=== PATIENT | female | born 1985 | race African-American/Black ===

== ENCOUNTER 2018-10-20 18:07 | Emergency (ER) | payer OTHER ==
[~2018-10-20] VITALS: Ht 180.3 cm; Wt 99.8 kg
[2018-10-20 18:52] LABS: URINE BILIRUBIN NEGATIVE (Negative); URINE BLOOD 1+ (Negative); URINE CLARITY CLEAR; URINE COLOR YELLOW; URINE GLUCOSE-RANDOM* NEGATIVE (Negative); URINE KETONES NEGATIVE (Negative); URINE LEUKOCYTES-REFLEX NEGATIVE (Negative); URINE NITRITE-REFLEX NEGATIVE (Negative); URINE PROTEIN (DIPSTICK) NEGATIVE (Negative); URINE UROBILINOGEN 0.2 E.U./dl (0.2-1.0)
[2018-10-20 19:09] LABS: BACTERIA-REFLEX None Seen /HPF (None Seen); CRYSTALS None Seen /LPF (None Seen); MUCUS >6 Heavy strn/LPF (None Seen); SQUAMOUS 4-10 Moderate /LPF (0-3); URINE RBC 3-10 Few /HPF (0-2); URINE WBC-REFLEX 0-5 Rare /HPF (0-5)
[2018-10-20 19:15] LABS: CASTS None Seen /LPF (None Seen)
[2018-10-20] MEDS ORDERED: JANUMET 50-1,01 EACH PO (19:27)
[2018-10-20] MEDS ORDERED: IBUPROFEN 800800 M1 PO (19:28)
[2018-10-20 19:29] LABS: POC CA IONIZED 5.1 mg/dL (4.5-5.3); POC CREATININE 0.8 mg/dL (0.6-1.3); POC HEMOGLOBIN 11.6 g/dL (12.0-15.0); POC POTASSIUM 3.8 mmol/L (3.5-5.1)
[2018-10-20 19:34] LABS: ABSOLUTE NEUTROPHILS 9.7 thou/uL (1.4-8.2); BASOPHILS 0.3 % (0.0-2.0); EOSINOPHILS 0.3 % (0.0-3.0); HEMATOCRIT 32.4 % (37.0-47.0); HEMOGLOBIN 10.8 gm/dL (12.0-15.0); LYMPHOCYTES 12.1 % (24.0-44.0); MCH 26.3 pg (26.0-34.0); MCHC 33.2 g/dL (28.0-37.0); MCV 79.3 fL (80.0-100.0); MONOCYTES 3.4 % (1.0-8.0); PLATELET COUNT 255 thou/uL (150-400); POLYS 83.9 % (36.0-66.0); RBC 4.08 mil/uL (4.20-5.00); RDW 13.3 % (10.5-14.5); WBC 11.5 thou/uL (4.0-11.0)
[2018-10-20 19:40] LABS: ANION GAP 8 mmol/L (7-16); BUN 14 mg/dL (7-18); CALCIUM 9.4 mg/dL (8.5-10.1); CHLORIDE 102 mmol/L (98-107); CO2 26 mmol/L (21-32); CREATININE 0.9 mg/dL (0.6-1.0); GLUCOSE 148 mg/dL (74-106); POTASSIUM 3.7 mmol/L (3.5-5.1); SODIUM 136 mmol/L (136-145)
[2018-10-20 19:49] LABS: TROPONIN-I <0.06 ng/mL (<0.06)
[2018-10-20 20:27] VITALS: BP 130/82
--- NOTE | 2018-10-21 08:20 | EKG ---
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: Adan : 1985 Requested By: Nikolai Fry Order Number: [id number] MD: Trenton Rivas Measurements Intervals [place] Rate: 85 P: 69 MA: 155 QRS: 20 QRSD: 94 T: 12 QT: 345 QTc: 411 Interpretive Statements Sinus rhythm RSR' in V1 or V2, probably normal variant No previous ECG available for comparison Electronically Signed On 10-21-2018 8:20:05 SOILS ANALYST by Trenton Rivas [email or web address] <ELECTRONICALLY SIGNED> By: Trenton Rivas MD, [facility] 10/21/18819 09 09 Trenton Rivas MD, FACC /EPI
== END 2018-10-20 20:27 | disposition home or self-care (01) ==
LOC: ER 18:07
PROVIDERS: Emergency Medicine
DX: R42 Dizziness and giddiness (principal); E11.9 Type 2 diabetes mellitus without complications

== ENCOUNTER 2018-12-10 14:35 | Emergency (ER) | payer OTHER ==
[~2018-12-10] VITALS: Ht 180.3 cm; Wt 106.6 kg
[~2018-12-10 14:35] MED LIST: IBUPROFEN 800800 M1 PO; JANUMET 50-1,01 EACH PO
[2018-12-10] MEDS ORDERED: EXCEDRIN CAPLE1 EACH PO (15:33)
[2018-12-10 16:00] LABS: ABSOLUTE NEUTROPHILS 7.3 thou/uL (1.4-8.2); BASOPHILS 0.2 % (0.0-2.0); EOSINOPHILS 0.4 % (0.0-3.0); HEMATOCRIT 33.3 % (37.0-47.0); HEMOGLOBIN 10.8 gm/dL (12.0-15.0); MCH 26.2 pg (26.0-34.0); MCHC 32.5 g/dL (28.0-37.0); MCV 80.6 fL (80.0-100.0); MONOCYTES 4.2 % (1.0-8.0); PLATELET COUNT 245 thou/uL (150-400); POLYS 80.2 % (36.0-66.0); RBC 4.13 mil/uL (4.20-5.00); RDW 13.9 % (10.5-14.5); WBC 9.1 thou/uL (4.0-11.0)
[2018-12-10 16:11] LABS: ANION GAP 11 mmol/L (7-16); BUN 10 mg/dL (7-18); CALCIUM 9.2 mg/dL (8.5-10.1); CHLORIDE 102 mmol/L (98-107); CO2 25 mmol/L (21-32); GLUCOSE 218 mg/dL (74-106); POTASSIUM 3.5 mmol/L (3.5-5.1); SODIUM 138 mmol/L (136-145)
[2018-12-10 16:21] LABS: ALBUMIN 3.4 g/dL (3.4-5.0); SGOT 12 U/L (15-37); SGPT 19 U/L (30-65); TOTAL BILIRUBIN 0.3 mg/dL (<0.1-1.0); TOTAL PROTEIN 9.5 g/dL (6.4-8.2); TROPONIN-I <0.06 ng/mL (<0.06)
[2018-12-10 16:59] LABS: URINE BILIRUBIN NEGATIVE (Negative); URINE BLOOD 1+ (Negative); URINE CLARITY CLEAR; URINE COLOR YELLOW; URINE GLUCOSE-RANDOM* NEGATIVE (Negative); URINE KETONES NEGATIVE (Negative); URINE LEUKOCYTES-REFLEX NEGATIVE (Negative); URINE NITRITE-REFLEX NEGATIVE (Negative); URINE PROTEIN (DIPSTICK) NEGATIVE (Negative); URINE SPECIFIC GRAVITY 1.025 (1.005-1.035)
[2018-12-10 17:17] LABS: BACTERIA-REFLEX 1-9 Few /HPF (None Seen); CASTS None Seen /LPF (None Seen); CRYSTALS None Seen /LPF (None Seen); SQUAMOUS 0-3 Few /LPF (0-3); URINE RBC 3-10 Few /HPF (0-2); URINE WBC-REFLEX 0-5 Rare /HPF (0-5)
[2018-12-10 18:40] VITALS: BP 121/70
--- NOTE | 2018-12-11 08:22 | EKG ---
[address] [address] [address] [facility] [place] [address] ELECTROCARDIOGRAM REPORT Name: BRENDAN ROMANO Room #: [facility]#: [id number] ������������������ Admission: 12/10/18 ������������������ Attend Phys: Discharge: 12/10/18 ������������������ Date of : 85 Report #: [id number] ����������������������������������������������������������������� [id number] THIS REPORT FOR: //name// [facility] ED Test Date: 2018-12-10 Test Time: 14:42:57 Pat Name: BRENDAN ROMANO Department: Room: Gender: F Clerk Manager: : 1985 Requested By: Elisha Rios Order Number: [id number] MD: Beck Hines Measurements Intervals [place] Rate: 88 P: 74 OR: 150 QRS: 18 QRSD: 85 T: -1 QT: 347 QTc: 420 Interpretive Statements Sinus rhythm Probable left atrial enlargement RSR' in V1 or V2, probably normal variant Compared to ECG 10/20/2018 19:10:34 No significant changes Electronically Signed On 12-11-2018 8:22:03 CDT by Beck Hines [email or web address] ��������������������������������������������� <ELECTRONICALLY SIGNED> ���������������������������������������� By: Beck Hines MD ��������������������������������������������� 12/11/18 08 144 41 Beck Hines MD /MARY BETH
== END 2018-12-10 18:44 | disposition home or self-care (01) ==
LOC: ER 14:35
PROVIDERS: Physician Assistant
DX: E86.0 Dehydration (principal); R42 Dizziness and giddiness; E11.9 Type 2 diabetes mellitus without complications

== ENCOUNTER 2019-01-02 09:12 | Emergency (ER) | payer OTHER ==
[~2019-01-02] VITALS: Ht 180.3 cm; Wt 98.9 kg
[~2019-01-02 09:12] MED LIST changes: +EXCEDRIN CAPLE1 EACH PO
[2019-01-02 09:41] LABS: URINE BILIRUBIN NEGATIVE (Negative); URINE BLOOD TRACE (Negative); URINE CLARITY CLEAR; URINE COLOR YELLOW; URINE GLUCOSE-RANDOM* 2+ (Negative); URINE KETONES NEGATIVE (Negative); URINE LEUKOCYTES-REFLEX TRACE (Negative); URINE NITRITE-REFLEX NEGATIVE (Negative); URINE PROTEIN (DIPSTICK) NEGATIVE (Negative)
[2019-01-02 10:12] LABS: ABSOLUTE NEUTROPHILS 7.8 thou/uL (1.4-8.2); BASOPHILS 0.7 % (0.0-2.0); EOSINOPHILS 0.5 % (0.0-3.0); LYMPHOCYTES 15.6 % (24.0-44.0); MCH 26.2 pg (26.0-34.0); MCHC 32.4 g/dL (28.0-37.0); MCV 80.7 fL (80.0-100.0); MONOCYTES 4.2 % (1.0-8.0); PLATELET COUNT 230 thou/uL (150-400); RBC 4.22 mil/uL (4.20-5.00); RDW 13.5 % (10.5-14.5); WBC 9.9 thou/uL (4.0-11.0)
[2019-01-02 10:24] LABS: ANION GAP 9 mmol/L (7-16); BUN 15 mg/dL (7-18); CHLORIDE 99 mmol/L (98-107); CO2 24 mmol/L (21-32); GLUCOSE 348 mg/dL (74-106); SODIUM 132 mmol/L (136-145)
[2019-01-02 10:34] LABS: ALBUMIN 3.2 g/dL (3.4-5.0); MAGNESIUM 1.8 mg/dL (1.8-2.4); SGOT 12 U/L (15-37); SGPT 20 U/L (30-65); TOTAL BILIRUBIN 0.4 mg/dL (<0.1-1.0); TOTAL PROTEIN 9.1 g/dL (6.4-8.2); TROPONIN-I <0.06 ng/mL (<0.06)
[2019-01-02 11:06] VITALS: BP 143/80
--- NOTE | 2019-01-02 16:44 | EKG ---
[address] [address] [facility] [place] [address] ELECTROCARDIOGRAM REPORT Name: BRENDAN ROMANO Room #: [facility]#: [id number] ������������������ Admission: 01/02/19 ������������������ Attend Phys: Discharge: 01/02/19 ������������������ Date of : 85 Report #: [id number] ����������������������������������������������������������������� [id number] THIS REPORT FOR: //name// 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: SHELLIE : 1985 Requested By: Gerard Cristobal Order Number: [id number] MD: Trenton Rivas Measurements Intervals [place] Rate: 81 P: 73 AL: 154 QRS: 23 QRSD: 83 T: 25 QT: 362 QTc: 421 Interpretive Statements Sinus rhythm RSR' in V1 or V2, probably normal variant Compared to ECG 12/10/2018 14:42:57 No significant changes Electronically Signed On 01-02-2019 16:43:59 CDT by Trenton Rivas [email or web address] ��������������������������������������������� <ELECTRONICALLY SIGNED> ���������������������������������������� By: Trenton Rivas MD, [facility] ��������������������������������������������� 01/02/19 1643 7 7 Trenton Rivas MD, [facility] /EPI
== END 2019-01-02 11:14 | disposition home or self-care (01) ==
LOC: ER 09:12
PROVIDERS: Emergency Medicine
DX: E11.9 Type 2 diabetes mellitus without complications (principal); R42 Dizziness and giddiness

== ENCOUNTER 2019-04-01 23:39 | Inpatient (IN) | payer BC, OTHER ==
[~2019-04-01] VITALS: Ht 180.3 cm; Wt 104.3 kg
--- NOTE | ~2019-04-01 | O ---
[facility] [place] [address] OPERATIVE REPORT Name: BRENDAN ROMANO Room #: 431-P ADM IN M.R.#: [id number] Admission: 04/02/19 ������������������ Attend Phys: Clyde Cho MD Discharge: ������������������ Date of : 85 Report #: [id number] THIS REPORT FOR: //name// CC: Patrick Cho DATE OF SERVICE: 04/02/2019 PREOPERATIVE DIAGNOSIS: Left thigh hidradenitis suppurativa with abscess. POSTOPERATIVE DIAGNOSIS: Left thigh hidradenitis suppurativa with abscess. OPERATION: Incision and drainage of left thigh abscess. SURGEON: Chepe Glover MD. ANESTHESIA: General. ESTIMATED BLOOD LOSS: Minimal. SPECIMENS: 1. Skin for pathology. 2. Abscess fluid for culture and sensitivity. DESCRIPTION OF PROCEDURE: After informed consent was obtained, the patient was brought to the operating room and placed supine. SCDs were placed and working, preoperative antibiotics were administered, general anesthesia was induced. The abdomen and left thigh were prepped and draped in the usual sterile fashion. I used the cautery to make an ellipse of an incision in the left inner thigh. This measured approximately 5 x 4 cm. I was able to dissect down to healthy fat. The skin was then sent off as a specimen. There were two areas more lateral and superior. These measured approximately 2 x 2 cm each. These were excised as well using the cautery. They were packed with sterile gauze. Sterile dressings were applied. COMPLICATIONS: None. DISPOSITION: The patient was taken to recovery in satisfactory condition. ��������������������������������������������� ���������������������������������������� By: ��������������������������������������������� [id number] Chepe Glover MD /nt
[2019-04-02 00:05] VITALS: BP 121/78
[2019-04-02 02:03] LABS: ABSOLUTE NEUTROPHILS 9.2 thou/uL (1.4-8.2); BASOPHILS 1.1 % (0.0-2.0); EOSINOPHILS 0.3 % (0.0-3.0); HEMOGLOBIN 10.3 gm/dL (12.0-15.0); LYMPHOCYTES 17.5 % (24.0-44.0); MCH 25.6 pg (26.0-34.0); MCHC 32.3 g/dL (28.0-37.0); MCV 79.5 fL (80.0-100.0); MONOCYTES 3.9 % (1.0-8.0); PLATELET COUNT 261 thou/uL (150-400); POLYS 77.2 % (36.0-66.0); RBC 4.02 mil/uL (4.20-5.00); RDW 13.4 % (10.5-14.5)
[2019-04-02 02:10] LABS: CALCIUM 8.7 mg/dL (8.5-10.1); POTASSIUM 3.9 mmol/L (3.5-5.1)
[2019-04-02 02:16] LABS: ALBUMIN 2.8 g/dL (3.4-5.0); TOTAL BILIRUBIN 0.3 mg/dL (<0.1-1.0)
[2019-04-02 02:18] LABS: URINE BILIRUBIN NEGATIVE (Negative); URINE BLOOD TRACE (Negative); URINE CLARITY CLEAR; URINE COLOR YELLOW; URINE GLUCOSE-RANDOM* 3+ (Negative); URINE KETONES NEGATIVE (Negative); URINE LEUKOCYTES-REFLEX TRACE (Negative); URINE NITRITE-REFLEX NEGATIVE (Negative); URINE PROTEIN (DIPSTICK) NEGATIVE (Negative)
--- NOTE | 2019-04-02 02:20 | NUR ---
PATIENT TO CT AT THIS TIME
[2019-04-02 04:31] VITALS: BP 120/69
--- NOTE | 2019-04-02 04:39 | NUR ---
REPORT TO INPATIENT RN, LAUREEN.
--- NOTE | 2019-04-02 04:39 | NUR ---
received report from YUDELKA Castellanos, ED.
[2019-04-02 04:42] VITALS: BP 117/90
[2019-04-02 05:00] VITALS: BP 135/91
--- NOTE | 2019-04-02 07:19 | NUR ---
PT ADMITTED TO THE UNIT, AMBULATED FROM CART TO BED, GAIT STEADY, RIGHT ARMPIT, LEFT GROIN BOTH DRAINING WITH SEROUS DRAINAGE, LEFT ARMPIT LESS DRAINAGE NOTED, PICTURES OBTAINED, Johan KAY, ROUNDED, GIVEN FENTANYL FOR PAIN, GIVEN FALL EDUCATION, SIGNED CONTRACT, GIVEN BED/CALL LIGHT EDUCATION, ON ROOM AIR, PT EDUCATED ABOUT HYGIENE, SAID SHE HAS TWO YEAR OLD CHILD AND THE OTHERS ARE 8, 10 AND 12 YEARS OLD, RESTING GOOD, MONITORED.
--- NOTE | 2019-04-02 07:39 | NUR ---
CONSULT TO DR JIMENEZ WAS SENT OUT THIS MORNING, KEPT NPO FOR I/D OF ABSCESS.
[2019-04-02 08:48] VITALS: BP 126/84
--- NOTE | 2019-04-02 09:08 | NUR ---
Assessed d/t consult for abscess to L groin and R axilla. Hx DM, hidradenitis suppurativa. Per chart review, being kept NPO for possible I&D of abscess. Pt was resting in bed, but willing to speak w/ RD and allow for education. No appetite concerns or recent weight changes per pt, however weight records show a +12# weight gain in 3 months (from 218# per 01/02 to 230# per 04/02). Informed pt of increased protein needs given skin integrity concerns w/ abscess. Recommended protein entree q meal and additional protein source from milk, yogurt, cottage cheese, or plant protein like nut butter. Morning BG high at 318 mg/dl - has SSI. A1c - pending. Remains low nutrition risk.
--- NOTE | 2019-04-02 16:21 | NUR ---
ASSESSMENT-PT LIVES IN AN APT WITH HER MOTHER. SHE HAS HER SISTER IN THE AREA FOR SUPPORT WELL. PT IS INDEPENDENT OF ADLS AND AMBULATION PRIOR TO ADMISSION. PT VOICES NO CONCERNS RELATED TO DC. FOLLOWING TO ASSIST WITH ANY DC NNEDS. 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 PT HAS NOT HAD ANY HH SERVICES AND USES NO DME.
[2019-04-02 20:35] VITALS: BP 152/76
--- NOTE | 2019-04-02 20:45 | NUR ---
ASSUMED CARE OF PT AT 0700. ASSESSMENT CHARTED A&O,X4. C/O LEFT GROIN AND RIGHT AXILLA PAIN, PAIN MEDS GIVEN ORDERED. CULTURE OBTAINED. PLAN FOR I&D THIS EVENING, NPO. ACHS, NO INSULIN GIVEN DUE TO NPO. PT LEFT IN STABLE CONDITION VIA BED AT 15:40 FOR PREOP AND RETURNED AT 19:30. SURGICAL DRESSING IN PLACE LEFT GROIN, NO BLEEDING NOTED. WAITING FOR DR. ODONNELL TO ORDER DRESSING CHANGES. NO OTHER CHANGE IN STATUS.
[2019-04-03 00:05] LABS: GLYCOHEMOGLOBIN (HGB A1C) 12.8 % (4.8-5.6)
--- NOTE | 2019-04-03 05:30 | NUR ---
ASSUMED CARE OF PT @1900 PT A&OX4. SURGICAL DRESSING FROM I&D ON LEFT GROIN INTACT. NO DRAINAGE ON SITE. FLUIDS INFUISING AND ABX GIVEN. POC DONE. CARB CONTROL DIET ORDERED AND STARTED PER DOC. INSULIN GIVEN FOR ELEVATED BSG. FALL PREC IN PLACE AND CALL LIGHT WITHIN REACH WILL CONTINUE TO MONITOR TILL EOS
[2019-04-03 06:37] VITALS: BP 123/77
[2019-04-03 08:11] VITALS: BP 117/81
[2019-04-03 10:36] LABS: HEMATOCRIT 28.6 % (37.0-47.0); HEMOGLOBIN 9.1 gm/dL (12.0-15.0); MCH 25.3 pg (26.0-34.0); MCHC 31.8 g/dL (28.0-37.0); MCV 79.5 fL (80.0-100.0); RBC 3.6 mil/uL (4.20-5.00); RDW 13.5 % (10.5-14.5); WBC 12.6 thou/uL (4.0-11.0)
[2019-04-03 10:45] LABS: CALCIUM 8.5 mg/dL (8.5-10.1); MAGNESIUM 1.9 mg/dL (1.8-2.4); POTASSIUM 3.9 mmol/L (3.5-5.1)
[2019-04-03 16:36] VITALS: BP 114/76
--- NOTE | 2019-04-03 16:57 | NUR ---
WOUND CARE CONSULT; ROUNDING WITH DR RAO AND ENZO BRAID PATTERN SETTER. BILATERAL AXILLARY'S PAINFUL, DRAINING. THE PAT HAS HAD THIS FOR A LONG TIME 5+ YEARS. THE LEFT GROIN WAS SURGICALLY DEBRIDED CREATING 3 WOUNDS. THE WOUNDS ARE PAINFUL, BEFFY RED DRAINING SEROSANGINOUS DRAINAGE. RECOMMENDATIONS; AQUACEL AG TO ALL WOUND BEDS, SECURE WITH ABD'S AND TAPE. DISCUSSED WITH RN
--- NOTE | 2019-04-03 20:03 | NUR ---
Assessment completed.vss.Pt in bed most of the time but able to repositioned self. Dr King here,order noted.Drsg change done to left groin by journeyman pressman.Ivf cont. to infuse as ordered. Family here later this evening and assisted pt with bath.Pain shot given as ordered with relief.Report off to noc rn.
[2019-04-03 20:53] VITALS: BP 111/71
[2019-04-04 04:52] VITALS: BP 89/54
[2019-04-04 05:37] LABS: HEMATOCRIT 26.3 % (37.0-47.0); HEMOGLOBIN 8.3 gm/dL (12.0-15.0); MCH 25.4 pg (26.0-34.0); MCHC 31.7 g/dL (28.0-37.0); MCV 80.1 fL (80.0-100.0); RBC 3.28 mil/uL (4.20-5.00); RDW 13.7 % (10.5-14.5); WBC 10.1 thou/uL (4.0-11.0)
[2019-04-04 05:39] LABS: CREATININE 0.9 mg/dL (0.6-1.0); MAGNESIUM 1.8 mg/dL (1.8-2.4); POTASSIUM 3.8 mmol/L (3.5-5.1)
--- NOTE | 2019-04-04 06:09 | NUR ---
ASSUMED CARE OF PT@1900. PT A&OX4 AND VSS AT THIS SHIFT. WITH C/O LFT GROIN PAIN. PAIN MEDS GIVEN FOR MANAGEMENT. POC DONE AND DRESSING ON LFT GROIN INTACT. WILL CONTINUE TO MONITOR TILL EOS
[2019-04-04 08:11] VITALS: BP 113/75
[2019-04-04] MEDS ORDERED: BACTRIM DS TAB1 EACH PO (13:24)
[2019-04-04] MEDS ORDERED: LANTUS SOL100 UNIT/1 SUBQ (13:28)
[2019-04-04] MEDS ORDERED: 1ST TIER UNILE1 EAC1 SUBQ (13:29)
[2019-04-04] MEDS ORDERED: TEST STRIPS1 EACH SUBQ (13:36)
[2019-04-04 15:01] VITALS: BP 113/75
--- NOTE | 2019-04-04 15:57 | NUR ---
DISCHARGED TO HOME ACCOMPANIED BY SPOUSE. DRESSING CHANGE CARE PROVIDED AND PATIENT VOICED UNDERSTANDING. IV D/C'D. DENIES QUESIONS OR CONCERNS. VERY PLEASANT AND COOPERATIVE. DENIES PAIN.
[2019-04-04] MEDS ORDERED: TRAMADOL 50 MG50 MG PO (16:19)
--- NOTE | 2019-04-06 08:26 | HC ---
[facility] [place] [address] CONSULTATION Name: BRENDAN ROMANO Room #: 431-P [facility] IN ..#: [id number] Admission: 04/02/19 ������������������ Attend Phys: Clyde Cho MD Discharge: 04/04/19 ������������������ Date of : 85 Report #: [id number] THIS REPORT FOR: //name// CC: Patrick Cho DATE OF SERVICE: 04/03/2019 CHIEF COMPLAINT: Hidradenitis suppurativa and abscess to the left thigh. HISTORY OF PRESENT ILLNESS: This is a 33-year-old female patient who presented to the Emergency Department with an abscess on her left upper medial thigh that began several days ago. She has had a long history of hidradenitis suppurativa involving her groin and bilateral axilla. The swelling has increased over the last couple of days with bloody drainage and purulent material and odor. She is admitted to the hospital. She was seen by general surgery and taken to the operating room for surgical debridement of the abscess. She has had some pain, but states she is feeling somewhat better. PAST MEDICAL HISTORY: Significant for type 2 diabetes mellitus, protein calorie malnutrition as well as hidradenitis suppurativa. ALLERGIES: None. MEDICATIONS: Include Janumet and Motrin. SOCIAL HISTORY: Negative for alcohol or tobacco use. FAMILY HISTORY: Positive for heart disease in her father and diabetes in both of her parents. REVIEW OF SYSTEMS: CONSTITUTIONAL: The patient denies fever, chills or weight loss. NEUROLOGICAL: The patient denies focal weakness, numbness or tingling. EYES: The patient denies any visual changes, redness or drainage. ENT: The patient denies earache, nasal drainage or sore throat. CARDIOVASCULAR: The patient denies chest pain, palpitations or diaphoresis. PULMONARY: The patient denies cough or shortness of breath. GASTROINTESTINAL: The patient denies nausea, vomiting, diarrhea. ORTHOPEDIC: The patient complains of some pain and drainage from both axillary regions as well as the left thigh, which she states feels better following surgery. Other systems in a 14-point review of systems are negative. PHYSICAL EXAMINATION: VITAL SIGNS: At this time include temperature 37.0, pulse 78, respiratory rate [facility] [address] [place] [address] CONSULTATION Name: BRENDAN ROMANO Room #: 431-[facility].#: [id number] Admission: 04/02/19 ������������������ Attend Phys: Clyde Cho MD Discharge: 04/04/19 ������������������ Date of : 85 Report #: [id number], blood pressure 114/76. GENERAL: This is a well-developed, well-nourished female patient who appears to be in mild discomfort. HEENT: Head normocephalic. Nose and throat clear. NECK: Supple. LUNGS: Clear. HEART: Regular. ABDOMEN: Soft. Bowel sounds present. EXTREMITIES: Demonstrate some evidence of hidradenitis suppurativa in both axillary regions with some purulent drainage and mild tenderness. No discrete abscess noted. Left anterior thigh demonstrates surgical wounds x 3 to the anterior and medial portion of the thigh. These areas are relatively clean and granulating and do not appear overtly infected at this time. NEUROLOGIC: The patient is alert and oriented and appropriate. LABORATORY DATA: Include a sodium of 136, potassium 3.9, chloride 105, CO2 of 25, BUN 11, creatinine 1.0, glucose is 318. White blood cell count 12.6 with hemoglobin of 9.1. CLINICAL IMPRESSION: 1. Abscess to the left anterior thigh, status post surgical debridement. 2. Hidradenitis suppurativa to the groin bilaterally and bilateral axilla. 3. Type 2 diabetes mellitus with hyperglycemia. RECOMMENDATIONS: At this point in time, the patient will be treated with topical silver alginate to the open areas of the left thigh and both axilla. She is continued on intravenous antibiotic therapy. Cultures are pending. She may require some surgical debridement of the axilla at some point in the future as a preventative measure. I appreciate being asked to see her in consultation. ��������������������������������������������� <ELECTRONICALLY SIGNED> ���������������������������������������� By: Justin Decker MD ��������������������������������������������� 04/06/19 0826 1813 0712 Justin Decker MD /nt
--- NOTE | 2019-04-06 17:06 | PATH ---
[facility] [address] [place] [address] PATHOLOGY RPT PROCEDURE Name: SCARLET ROMANO Room #: 431-P [facility] IN M.R.#: [id number] ������������������ Admission: 04/02/19 ������������������ Date of : 85 Discharge: 04/04/19 Report #: [id number] Path Case #: [id number] [facility] Accession Number: [id number] . 01 Material submitted: . thigh - LEFT THIGH HIDRADENITIS. Modifiers: left . 01 Clinical history: . Left thigh abscess . 02 Diagnosis: Left thigh abscess/hidradenitis, excision: - Deep subcutaneous tissue showing marked acute and chronic inflammation associated with a mature keratinous cyst. - Negative for malignancy. (IUV:[employer]; 04/06/2019) MBR/04/06/2019 . 02 Electronically signed: . Kesha Panchal MD, Pathologist NPI- [id number] . 01 Gross description: . The specimen is received in formalin, labeled "Scarlet Romano, left thigh hidradenitis". Received is no ellipse of granado-brown skin with attached underlying soft tissue measuring 5.0 x 1.7 x 2.7 cm in greatest dimensions. Sectioning reveals a linear sinus tract measuring 2.4 cm in length by up to 0.6 cm in width. Remainder of the specimen displays white-lundy to yellow-lundy cut surfaces. The specimen is submitted representatively in cassettes A1 and A2. (CAA; 04/03/2019) QAC/QAC . 02 Pathologist provided ICD-10: L08.9, L72.9 . 02 CPT . 679713 Specimen Comment: A courtesy copy of this report has been sent to Specimen Comment: [phone], , . Specimen Comment: Report sent to ,DR YEPEZ / DR WHYTE Performed at: [address] [id number] MD Jhony Barron MD Phone: [phone] Performed at: [address] [place] [address] PATHOLOGY RPT PROCEDURE Name: SCARLET ROMANO Room #: 431-P [facility] IN M.R.#: [id number] ������������������ Admission: 04/02/19 ������������������ Date of : 85 Discharge: 04/04/19 Report #: [id number] Path Case #: [id number] [address], [place] [id number] MD Kesha Panchal MD Phone: [phone]
== END 2019-04-04 16:22 | disposition home or self-care (01) | DRG 603 ==
LOC: ER 23:39 → 4E 04-02 03:54 → EROBS 04-02 03:54 → 4E 04-02 04:42
PROVIDERS: Emergency Medicine; Nurse Practitioner Acute Care; ADMIT Internal Medicine
DX: L02.416 Cutaneous abscess of left lower limb (principal); L03.315 Cellulitis of perineum; E46 Unspecified protein-calorie malnutrition; L02.411 Cutaneous abscess of right axilla; L03.111 Cellulitis of right axilla; L02.214 Cutaneous abscess of groin; L03.314 Cellulitis of groin; F80.82 Social pragmatic communication disorder; E11.65 Type 2 diabetes mellitus with hyperglycemia; L73.2 Hidradenitis suppurativa; D64.9 Anemia, unspecified; E88.09 Other disorders of plasma-protein metabolism, not elsewhere classified; E66.01 Morbid (severe) obesity due to excess calories; Z79.899 Other long term (current) drug therapy; Z82.49 Family history of ischemic heart disease and other diseases of the circulatory system; Z83.3 Family history of diabetes mellitus; Z68.32 Body mass index [BMI] 32.0-32.9, adult
CPT/HCPCS: 10084; 50010; 50101; 50386; 57091; 62110; 62900; 70005

== ENCOUNTER 2019-05-03 09:25 | Inpatient (IN) | payer BC, OTHER ==
[~2019-05-03] VITALS: Ht 180.3 cm; Wt 109.3 kg
[2019-05-03 09:25] VITALS: BP 121/92
[~2019-05-03 09:25] MED LIST changes: +1ST TIER UNILE1 EAC1 SUBQ; +BACTRIM DS TAB1 EACH PO; +LANTUS SOL100 UNIT/1 SUBQ; +TEST STRIPS1 EACH SUBQ; +TRAMADOL 50 MG50 MG PO
[2019-05-03] MEDS ORDERED: IBUPROFEN 800800 M1 PO (09:35)
[2019-05-03 11:56] LABS: ABSOLUTE NEUTROPHILS 7.7 thou/uL (1.4-8.2); BASOPHILS 0.6 % (0.0-2.0); EOSINOPHILS 0.5 % (0.0-3.0); HEMATOCRIT 27.8 % (37.0-47.0); HEMOGLOBIN 9.2 gm/dL (12.0-15.0); LYMPHOCYTES 15.1 % (24.0-44.0); MCH 25.9 pg (26.0-34.0); MCHC 33.2 g/dL (28.0-37.0); MONOCYTES 4.1 % (1.0-8.0); PLATELET COUNT 253 thou/uL (150-400); POLYS 79.7 % (36.0-66.0); RBC 3.56 mil/uL (4.20-5.00); RDW 13.6 % (10.5-14.5); WBC 9.7 thou/uL (4.0-11.0)
[2019-05-03 12:26] LABS: CALCIUM 8.9 mg/dL (8.5-10.1); CREATININE 0.9 mg/dL (0.6-1.0); POTASSIUM 4.2 mmol/L (3.5-5.1)
[2019-05-03 12:32] LABS: ALBUMIN 2.7 g/dL (3.4-5.0); TOTAL BILIRUBIN 0.1 mg/dL (<0.1-1.0); TOTAL PROTEIN 8.6 g/dL (6.4-8.2)
[2019-05-03 13:48] VITALS: BP 123/79; BP 128/88
--- NOTE | 2019-05-03 14:27 | NUR ---
CALLED [id number] X 2 AND NO ANSWER
--- NOTE | 2019-05-03 14:29 | NUR ---
PER MENDY, NURSE IS IN A ROOM AND WILL CALL BACK
[2019-05-03 15:20] VITALS: BP 126/83
[2019-05-03 20:04] VITALS: BP 124/84
--- NOTE | 2019-05-03 20:55 | NUR ---
Received pt from the ER, IV fluids started, admission completed. VS stable, POC followed, consents singed for tomorrow, NPO midnight onwards pt informed. Pt is up at [facility]. informed the pm nurse.
[2019-05-04 00:26] VITALS: BP 113/75
--- NOTE | 2019-05-04 02:05 | NUR ---
ASSUMED CARE OF PT @1900. PT A&OX4. C/O 06/18 PAIN AND MEDICATED APPROP. PT ADLIB IN THE ROOM WITH STAEDY GAIT. PT HAS A ABSESSES IN HER R AMPIT AND LEFT GROIN AREA. PT IS NPO IN PREPARATION FOR AN I&D IN THE MORNING. CALL MENDOZA WITHIN REACH
[2019-05-04 03:39] VITALS: BP 109/73
[2019-05-04 08:00] VITALS: BP 110/69
--- NOTE | 2019-05-04 11:37 | NUR ---
ASSUMED CARE AT 0700, SHIFT ASSESSMENT DONE, NPO SINCE LAST NIGHT FOR I&D TODAY. ACHS, BLOOD SUGAR WAS 185, 5 UNITS OF INSULIN GIVEN PER SURGERY. IV ANTIBIOTICS AND FLUIDS RUNNING, UP AD ZUHAIR, ROOM AIR. WILL CONTINUE TO ASSESS AND ASSIST WITH ADLs NEEDED.
--- NOTE | 2019-05-04 16:03 | NUR ---
PT ADMITTED RELATED TO ABSESSES DM. CM REVIEWED CHART AND SPOKE WITH CARE TEAM. CM MET WITH PT AT BEDSIDE THIS DAY. PT IS A&O X4. CM ROLE INTRODUCED. PT INDICATED SHE LIVES IN A HOSUE WITH HER SPOUSE AND KIDS WITH NO STEPS TO ENTER. PT INDICATED SHE HAD BEEN INDEPDENENT WITH GAIT AND ADLS GANG BOSS. PT INDICATED NO DME OR HH HX. PT INDICATED HER PCP IS DR. CHERRIE DIAZ AT [facility]. PT INDICATED SHE PLANS TO RETURN HOME ONCE MEDICALLY STABLE. CM TO FOLLOW INDICATED WITH DC PLANNING.
[2019-05-04 18:00] VITALS: BP 122/81
[2019-05-04 20:05] VITALS: BP 131/88
--- NOTE | 2019-05-05 05:30 | NUR ---
Pt. rested quietly at intervals during the night when checked on during frequent rounds. She c/o pain to her upper extremities and left groin. Medicated for pain (see emar) with partial relief verbalized. Dressings to bilateral axillary and left groin are intact. Assisted up to the bathroom and she did void.
[2019-05-05 07:31] VITALS: BP 122/76
[2019-05-05 09:10] LABS: GLYCOHEMOGLOBIN (HGB A1C) 11.1 % (4.8-5.6)
--- NOTE | 2019-05-05 10:44 | NUR ---
ORDERS RECEIVED FOR PT EVAL AND TREAT. Pt LIVES WITH AND 4 KIDS IN HOME WITH NO STAIRS. AMBULATORY WITHOUT GAIT AIDS AND INDEP WITH ADLs. 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 Pt REPORTED VERY LITTLE PAIN AND STATED THAT SHE HAS NOT HAD ANY STRENGTH OR BALANCE ISSUES SINCE ARRIVING AT HOSPITAL. Pt HAS BEEN UP AD ZUHAIR AND MANAGING IV POLE W/O DIFFICULTY PER Pt AND RN. Pt CONFIRMED THAT SHE DOES NOT FEEL THAT SHE NEEDS PT SERVICES AT THIS TIME. Pt MOBILIZING AT BASELINE LEVEL OF FUNCTIONAL MOBILITY. NO ACUTE PT NEEDS. ACUTE PT TO SIGN OFF. ANTICIPATE Pt WILL BE SAFE TO D/C HOME W/O THERAPY NEEDS. IF Pt HAS SIGNIFICANT CHANGE IN STRENGTH, BALANCE, ENDURANCE, OR FUNCTIONAL MOBILITY, PLEASE CONSIDER RE-CONSULTING PHYSICAL THERAPY.
--- NOTE | 2019-05-05 11:14 | NUR ---
Assess due to dx hidradinitis suppurativa affecting axillary and left groin area. Visit with pt this am, not very engaged in conversation mostly yes/no or nodding of head responses. Appetite good. BG in hospital controlled, A1C 11.1 very high but slightly improved from last A1C >12 in March. Receiving coverage with glargine at HS, and ss insulin. Wt up 11 lb, BMI obese 33.69. Received diet education during March admit and voices no further questions. Reinforcement of high protein food selections which pt is eating. Low nutrition risk
[2019-05-05 13:32] VITALS: BP 142/87
--- NOTE | 2019-05-05 20:06 | NUR ---
Assumed pt care this am. pt is up at [facility] with a steady gait. pt complained of pain and this was managed with medication. Seen by wound care, pt requested to have this done later on in the evening since her family was visiting and wanted to do this before bed time, endorsed to the night nurse all supplies given. Informed night nurse on the packing of the wound. Pt is requesting pain medication be given before the change is done, night nurse informed. VS stable, Nausea was noted , managed with medications. POC followed.
[2019-05-05 20:09] VITALS: BP 145/86
[2019-05-06 04:38] VITALS: BP 112/71
[2019-05-06 07:27] VITALS: BP 125/86
--- NOTE | 2019-05-06 08:11 | NUR ---
PROGRESS PT A/O X4, UP AD ZUHAIR. VSS IVF'S AND ANTIBIOTICS CONTINUE. DRESSINGS CHANGED 7 WOUNDS UNDER RIGHT ARM. I WAS ABLE TO PACK 6 WOUNDS LARGE AMOUNTS OF BLOODY DRAINAGE. PT ALMOST UNABLE TO TOLERATE PAIN WITH DRESSING CHANGE EVEN WITH THE MORPHINE CREAM IV DILAUDID AND OXYCODONE. WOUNDS IN LEFT GROIN ALSO CHANGED AND PACKED ONE WITH PACKING ONE WITH AQUACEL. LARGE AMOUNTS OF DRAINAGE NOTED, AN AREA ON LEFT BUTTOCK ALSO COVERED WITH AQUACEL. PT UP AD ZUHAIR, VOIDING QS CONTINUE WOUND CARE AND PAIN MANAGEMENT.
--- NOTE | 2019-05-06 13:39 | NUR ---
Assumed pt care this am, pain and discomfort waas verbalized on the incision site , aggrivated from the wound care and packing from last night. Informed Dr. Cervantes, awaiting medication to be given prior to wound care tonight. VS stable, POC followed.
[2019-05-06 14:06] VITALS: BP 130/78
--- NOTE | 2019-05-06 15:02 | HC ---
[facility] [place] [address] CONSULTATION Name: BRENDAN ROMANO Room #: 457-P ADM IN M.R.#: [id number] Admission: 05/03/19 Attend Phys: Deo Fontenot MD Discharge: Date of : 85 Report #: [id number] THIS REPORT FOR: //name// CC: FAM physician/PCP Deo Fontenot DATE OF SERVICE: 05/05/2019 WOUND CARE CONSULTATION PERSONAL PHYSICIAN: Deo Fontenot MD. CHIEF COMPLAINT: Right axillary left groin wound secondary to hidradenitis suppurativa. HISTORY OF PRESENT ILLNESS: This is a 34-year-old black female who was admitted through the Emergency Department for evaluation of pain and purulent drainage coming from the right axillary region and left groin. The patient has a history of hidradenitis suppurativa, which actually in these areas has been drained in the past surgically. The patient at this time was admitted for IV antibiotics and recurrent surgical consultation. The patient states that she has no fevers or chills. The patient states that since her last surgery she did note some improvement in her wounds; however, once again they started getting worse again just in the past couple of days. The patient states she has some chills and occasional night sweats; however, denies actual fever. We were asked to assist in the care of the wounds, which have now been status post operative drainage by Dr. Cervantes. PAST MEDICAL HISTORY: Significant for diabetes mellitus, hidradenitis suppurativa. CURRENT MEDICATIONS: Multiple including insulin. I reviewed the patient's list. DRUG ALLERGIES: None. SOCIAL HISTORY: The patient does not smoke or drink alcohol. FAMILY HISTORY: Not pertinent to current medical condition. REVIEW OF SYSTEMS: CONSTITUTIONAL: The patient had chills, night sweats, but no actual fever over the past 2 days prior to hospitalization. NEUROLOGIC: The patient denies numbness, tingling or weakness in arms or legs. EYES: No complaints. ENT: No complaints. [facility] [address] [place] [address] CONSULTATION Name: BRENDAN ROMANO Room #: 457-[facility].#: [id number] Admission: 05/03/19 Attend Phys: Deo Fontenot MD Discharge: Date of : 85 Report #: [id number] CARDIAC: The patient denies chest pain, palpitations, peripheral edema. RESPIRATORY: The patient denies shortness of breath, cough or wheezes. GASTROINTESTINAL: The patient denies nausea, vomiting or abdominal pain. GENITOURINARY: The patient denies urgency or frequency. MUSCULOSKELETAL: No complaints. SKIN: The patient has hidradenitis suppurativa on the right axillary region, left groin, which is status post surgical debridement. PHYSICAL EXAMINATION: VITAL SIGNS: Temperature 37.5, pulse 96, respiratory rate 18, BP 145/86. GENERAL: This is an alert and oriented x 3, pleasant black female who is in no obvious distress. HEENT: Normocephalic, atraumatic. Mucous membranes are moist. Pupils are round. Sclerae white. NECK: Supple, nontender. LUNGS: Clear. HEART: Regular. ABDOMEN: Soft, nontender. EXTREMITIES: The patient moves all extremities without difficulty. Distal neurovascularly intact. Evaluation of right axillary region reveals approximately 7 different surgical wounds with packing in the wounds themselves. There is no evidence of any acute purulence. The entire axillary region is tender to palpation, but no actual fluctuance. There is no increased erythema or warmth. Evaluation of the left groin reveals multiple surgical wounds which were packed with iodoform packing, tender to palpation, but no signs of increased actual erythema or warmth. There is minimal serosanguineous drainage noted, but no odor. There is no fluctuance. NEUROLOGIC: Cranial nerves 2-12 grossly intact. Motor and sensory grossly intact. LABORATORY DATA: White count 9.7, hemoglobin 9.2, BUN 11, creatinine 0.9, glucose was 235. Albumin 2.7. IMPRESSION: 1. Acute exacerbation of hidradenitis suppurativa in the right axillary and left groin wound with surrounding cellulitis, now status post incision and drainage. 2. Diabetes mellitus. 3. Generalized debility. 4. Protein-calorie malnutrition. There is moderate albumin 2.7. PLAN: At this time, we will start packing the wound with morphine, Silvadene cream with iodoform packing. We will cover these with an ABD. Continue IV antibiotics per medical team. We will make sure to maximize the patient's oral protein supplementation for healing. We will continue all other current [address] [address] CONSULTATION Name: ROSALINAADRIMOOKIE Piedad Room #: 457-P [facility] IN .R.#: [id number] Admission: 05/03/19 Attend Phys: Deo Fontenot MD Discharge: Date of : 85 Report #: [id number] medications and continue to follow the patient. I appreciate the ability to consult. <ELECTRONICALLY SIGNED> By: Lebron Wooten MD 05/06/19 1502 0831 1333 Lebron Wooten MD /nt
--- NOTE | 2019-05-06 15:32 | NUR ---
CARE TEAM INDICATED THAT PT MIGHT NEED PROLONGED ABX TREATMENT. CM MET WITH PT AND SHE INDICATED NO PREFERENCE FOR INFUSION COMPANY OR PROVIDER. SHE WAS AGREEABLE WITH REFERRAL BEING SENT TO [facility] FOR HOME INF[facility]ION AND [facility] FOR WOUND CARE [place] [place]. [facility] INDICATED THAT PT IS COVERED AT 100% FOR DRUG AND SUPPLIES. AWAITING RESPONSE FROM [facility]. CARE TEAM ALSO INDICATED THEY WERE GOING TO CONSULT ID. CM TO FOLLOW INDICATED WITH DC PLANNING.
[2019-05-06 19:43] VITALS: BP 137/79
[2019-05-07 06:07] LABS: HEMATOCRIT 25.3 % (37.0-47.0); HEMOGLOBIN 8.3 gm/dL (12.0-15.0); MCH 25.9 pg (26.0-34.0); MCHC 32.9 g/dL (28.0-37.0); MCV 78.7 fL (80.0-100.0); RBC 3.21 mil/uL (4.20-5.00); RDW 13.7 % (10.5-14.5); WBC 7.2 thou/uL (4.0-11.0)
[2019-05-07 06:16] LABS: CALCIUM 8.5 mg/dL (8.5-10.1); POTASSIUM 3.7 mmol/L (3.5-5.1)
[2019-05-07 08:07] VITALS: BP 126/76
--- NOTE | 2019-05-07 08:13 | NUR ---
progress pt up ad ludwig a/o x4 , lungs clear abdomen soft reports flatus and had a bm yesterday. reports pain at a level of 6to 9 taking oxycodone but it gives her a headache pc to Shira JJ and order to dc oxycodone and order tramadol obtained. pt refused dressing change said it is too painful and she can only handle it every other day educated on why it is being change r/v understanding. vss continue poc.
[2019-05-07 16:04] VITALS: BP 131/85
--- NOTE | 2019-05-07 19:31 | NUR ---
Assumed care of pt at 0700. Pt a&ox4. IVF and antibiotics infusing. Dressing changed. Up ad lduwig. Pain controlled with prn medications. Call light within reach. Will continue to monitor.
[2019-05-07 20:15] VITALS: BP 140/94
--- NOTE | 2019-05-08 02:22 | NUR ---
ASSUMED CARE AROUND 1900. AXOX4. R AXILLA AND L GROIN DRESSING CDI. NO S/S ACUTE DISTRESS NOTED REPORTED AT THIS TIME. WILL CONT TO MONITOR FOR ANY CHANGES IN CONDITION.
[2019-05-08 05:21] VITALS: BP 129/86
[2019-05-08 07:58] VITALS: BP 140/93
[2019-05-08 13:18] VITALS: BP 140/93
--- NOTE | 2019-05-08 14:47 | NUR ---
CONSULTED BY TIAGO DELUCA TO PLACE A PICC LINE FOR A PATIENT DISCHARGING TODAY WITH HOME IV ANTIBIOTICS. ORDER AND CONSENT NOTED. THE PROCEDURE WELL BENIFITS WELL RISKS FOR DVT AND INFECTION DISCUSSED WITH THE PATIENT AND SHE VERBALIZED UNDERSTANDING. THE RIGHT ARM HAS A DRESSING DUE TO CELLULITIS AND AVOIDED. THE LEFT ARM HAS OLD SCARS FROM A PRIOR CELLULITIS WHICH IS NOT ACUTE. THE LEFT UPPER ARM BASILIC WAS WIDLEY PATENT AND DEEP. A #4F SINGLE LUMEN POWER PICC WAS PLACED PER HOSPITAL POLICY AFTER A BEDSIDE TIMEOUT WAS COMPLETED WITH THE PATIENTS NURSE. PICC WAS TRIMMED TO 50CM AND ADVANCED WITHOUT DIFFICULTY.. A STAT CHEST XRAY WAS ORDERED FOR CONFIRMATION
[2019-05-08] MEDS ORDERED: TRAMADOL 50 MG50 MG PO (15:09)
[2019-05-08] MEDS ORDERED: ERTAPENEM1 GM IV (15:11)
[2019-05-08 15:22] VITALS: BP 133/89
--- NOTE | 2019-05-08 15:29 | HC ---
[facility] [place] [address] CONSULTATION Name: BRENDAN ROMANO Room #: 457-P ADM IN M.R.#: [id number] Admission: 05/03/19 Attend Phys: Deo Fontenot MD Discharge: Date of : 85 Report #: [id number] THIS REPORT FOR: //name// CC: [facility] physician/PCP Deo Fontenot DATE OF SERVICE: 05/07/2019 INFECTIOUS DISEASE CONSULTATION REASON FOR CONSULTATION: I was asked to evaluate concerning hidradenitis suppurativa. HISTORY OF PRESENT ILLNESS: This is a 34-year-old with underlying history of hidradenitis suppurativa, longstanding. She presents on 05/03/2019 with worsening symptoms mostly in her left groin and right axillary region. She does have obesity. She has been dealing with this for several years. No history of tobacco use. She does have poorly controlled diabetes. She was recently admitted on 04/04/2019 for similar symptoms. She has undergone debridement. Continues to have purulent drainage. Cultures so far no growth. ALLERGIES: None known. MEDICATIONS: As noted on her MAR including Zosyn and vancomycin. Previously was on Bactrim. PAST MEDICAL HISTORY: Diabetes, hidradenitis. FAMILY HISTORY: Heart disease. SOCIAL HISTORY: Nonsmoker, no significant alcohol intake. No further social history of note. REVIEW OF SYSTEMS: Ten-point review was negative other than what has been described above. PHYSICAL EXAMINATION: VITAL SIGNS: Afebrile and hemodynamically stable. GENERAL: She is alert and cooperative, obese. SKIN: Extensive bilateral axillary hidradenitis lesions with purulent drainage and tenderness. Left groin wounds packed. Lesions here are much less inflamed. EYES: Without scleral icterus. MOUTH: Without mucositis. NECK: No palpable adenopathy. LUNGS: Clear. HEART: Regular. [facility] [address] [place] [address] CONSULTATION Name: BRENDAN ROMANO Room #: 457-P [facility] [place].#: [id number] Admission: 05/03/19 Attend Phys: Deo Fontenot MD Discharge: Date of : 85 Report #: [id number] ABDOMEN: Soft and nontender. EXTREMITIES: No significant peripheral edema. NEUROLOGIC: Nonfocal. No cranial nerve abnormalities. Strength in the upper and lower extremities is normal. Sensation normal. BACK: Nontender with no CVA tenderness identified. PSYCHIATRIC: Mood was normal. LABORATORY STUDIES: Reviewed. Cultures are no growth. This was on antibiotic therapy. IMPRESSION: Recurrent hidradenitis suppurativa. She will need continued wound care and incision and drainage of these areas. She may well require further extensive excisional debridement. For now, we will keep her on IV antibiotic therapy and see if we can get the inflammatory process to decrease. If her blood glucose levels get under control and she can lose some weight, she may be a candidate for a biologic agent going forward. We definitely want her other issues under control prior to this. I have discussed the case with social insurance administrator and will assist in arranging her outpatient therapy. <ELECTRONICALLY SIGNED> By: Gerard Allen MD 05/08/19 1529 13 0128 Gerard Allen MD /nt
--- NOTE | 2019-05-08 16:03 | NUR ---
DISCHARGE PLANNING. PER UNIT SW DISCHARGE PLAN PATIENT DISCHARGING TO HOME WITH [facility] AND [facility]. CALL PLACED TO [facility] TO FOLLOW UP ON PATIENT DISCHARGE NEEDS AND TO PROVIDE PATIENTS UPDATED HOME ADDRESS. SPOKE WITH STORM MORA. PER ABBY, PATIENT REFERRAL WAS NEVER RECEIVED AND [facility] IS UNABLE TO SERVICE PATIENT AT THIS TIME, [facility] AT [facility]. UNIT SW NOTIFIED. REFERRAL FAXED TO [facility] PER PT REQUEST. CALL PLACED TO SHAHEED OSWALD INTAKE LIAISON. DAREK TO RUN PATIENT BENEFITS AND NOTIFY CM ONCE COMPLETE. UNIT SW AWARE. FOLLOWING.
--- NOTE | 2019-05-08 16:59 | NUR ---
julito, and interim not in net work with pt insurance. left message for village and no return call yet
[2019-05-08 18:15] VITALS: BP 140/93
--- NOTE | 2019-05-08 19:10 | NUR ---
hh/INFUSION PLANS FINALIZED. MET WITH PT EARLIER TODAY. SHASTA ZHOU MET WITH THE PT AND DID TEACHING AT BEDSIDE TODAY ALSO. SHASTA WILL SEE HER AT HOME TOMORROW AND THE [facility] RN WILL SEE HER ON SATURDAY. PT IS DCING TO ADDRESS: [id number],[facility] [id number]. ADDRESSS GIVEN TO [facility] AND CONFIRMED WITH SHASTA. PT IS AWARE OF THE DC PLAN AND AGREEABLE. SHE IS TEACHABLE AND HAS GOOD SUPPORT.
--- NOTE | 2019-05-08 20:50 | NUR ---
PT A7OX4, VSS, NO SIGNS OF DISTRESS. PATIENT PERIPHERAL IV REMOVED. PICC PLACED LEFT UPPER ARM, PATIENT SENT HOME WITH PICC INTACT, FOR ANTIBIOTIC THERAPY. SUPPLIES SENT FOR DRESSING CHANGES. NO REACTION TO ERTAPENOM WHILE ON FLOOR. PATIENT WILL COME IN TOMORROW MORNING TO METAL PLATER SCRIPT FOR TRAMADOL, NEEDED TO BE SIGNED BY DOCTOR. DRESSING CHANGES DONE TO LEFT GROIN, AND RIGHT AXILLA, PHOTOS TAKEN. PATIENT DISCHARGED HOME WITH HOME HEALTH, ALL BELONGINGS WITH PATIENT.
== END 2019-05-08 19:30 | disposition home health service (06) | DRG 580 ==
LOC: ER 09:25 → EROBS 12:54 → 4W 12:54
PROVIDERS: Emergency Medicine; ADMIT Internal Medicine
PROC: 0Y960ZZ Drainage of Left Inguinal Region, Open Approach (ICD-10-PCS; principal; 2019-05-04)
PROC: 0X950ZZ Drainage of Left Axilla, Open Approach (ICD-10-PCS; principal; 2019-05-04)
PROC: 02HV33Z Insertion of Infusion Device into Superior Vena Cava, Percutaneous Approach (ICD-10-PCS; 2019-05-08)
DX: L73.2 Hidradenitis suppurativa (principal); E44.0 Moderate protein-calorie malnutrition; L03.111 Cellulitis of right axilla; L02.214 Cutaneous abscess of groin; E66.9 Obesity, unspecified; D63.8 Anemia in other chronic diseases classified elsewhere; E11.65 Type 2 diabetes mellitus with hyperglycemia; D64.9 Anemia, unspecified; Z68.33 Body mass index [BMI] 33.0-33.9, adult; Z82.49 Family history of ischemic heart disease and other diseases of the circulatory system; Z83.3 Family history of diabetes mellitus
CPT/HCPCS: 10040; 27000; 50010; 50101; 50386; 50417; 70005

== ENCOUNTER 2019-10-25 01:08 | Inpatient (IN) | payer OTHER ==
[~2019-10-25] VITALS: Ht 180.3 cm; Wt 106.6 kg
[~2019-10-25 01:08] MED LIST changes: +ERTAPENEM1 GM IV
[2019-10-25 01:11] VITALS: BP 159/87
[2019-10-25 03:40] LABS: ABSOLUTE NEUTROPHILS 6.5 thou/uL (1.4-8.2); BASOPHILS 0.1 % (0.0-2.0); EOSINOPHILS 0.5 % (0.0-3.0); HEMATOCRIT 27.8 % (37.0-47.0); HEMOGLOBIN 8.7 gm/dL (12.0-15.0); LYMPHOCYTES 11.2 % (24.0-44.0); MCH 24.3 pg (26.0-34.0); MCHC 31.3 g/dL (28.0-37.0); MCV 77.6 fL (80.0-100.0); MONOCYTES 5.3 % (1.0-8.0); PLATELET COUNT 314 thou/uL (150-400); POLYS 82.9 % (36.0-66.0); RBC 3.58 mil/uL (4.20-5.00); RDW 16.6 % (10.5-14.5); WBC 7.9 thou/uL (4.0-11.0)
[2019-10-25 03:43] LABS: CALCIUM 8.2 mg/dL (8.5-10.1); POTASSIUM 3.3 mmol/L (3.5-5.1)
[2019-10-25 08:15] VITALS: BP 122/73
[2019-10-25 12:22] LABS: URINE BILIRUBIN NEGATIVE (Negative); URINE BLOOD 3+ (Negative); URINE CLARITY CLOUDY; URINE COLOR YELLOW; URINE GLUCOSE-RANDOM* 2+ (Negative); URINE KETONES NEGATIVE (Negative); URINE NITRITE-REFLEX NEGATIVE (Negative); URINE PROTEIN (DIPSTICK) TRACE (Negative)
[2019-10-25 12:35] LABS: URINE LEUKOCYTES-REFLEX 2+ (Negative)
[2019-10-25 12:36] LABS: AMORPHOUS URATES Few /LPF (None Seen); CASTS None Seen /LPF (None Seen); SQUAMOUS >10 Many /LPF (0-3); URINE RBC 3-10 Few /HPF (0-2)
--- NOTE | 2019-10-25 13:53 | NUR ---
PT ORIENTED TO ROOM 15 ER HOLD. BED LOW AND LOCKED, SIDE RAILS UPX3 CALL LIGHT IN REACH. RESPIRATIONS EVEN AND UNLABORED ON RA. TELE REVEALS NSR. PT DENIES PAIN OR SOA. IV ABX INFUSION AT THIS TIIME. WILL CONTINUE TO ASSESS.
[2019-10-25 14:47] VITALS: BP 111/68
[2019-10-25 14:55] VITALS: BP 130/85
--- NOTE | 2019-10-25 15:03 | NUR ---
ER SCRIPT EDITOR CALLED REPORT TO FLOOR. PT ADMIT TO FLOOR
[2019-10-25 15:30] VITALS: BP 118/77
[2019-10-25 15:44] LABS: HEMATOCRIT 26.4 % (37.0-47.0); HEMOGLOBIN 8.3 gm/dL (12.0-15.0)
[2019-10-25 19:02] VITALS: BP 104/54
[2019-10-26 01:10] LABS: GLYCOHEMOGLOBIN (HGB A1C) 11.5 % (4.8-5.6)
--- NOTE | 2019-10-26 03:01 | NUR ---
PATIENT AOX4 MAKES NEEDS KNOWN. PATIENT AMBULATES SLOWLY TO THE BATHROOM D/T INCREASED PAIN.PAIN CONTROLLED THIS SHIFT.PATIENT HAS SEVERE DRAINAGE AND STRONG ODOR ON THE ABCESS IN THE PERIAREA, BUTTOCKS AND ARMPIT. PATIENT IN BED ASLEEP AT THIS TIME BREATHING REGULAR AND UNLABOURED.
[2019-10-26 05:21] LABS: ABSOLUTE NEUTROPHILS 7.6 thou/uL (1.4-8.2); BASOPHILS 0.2 % (0.0-2.0); EOSINOPHILS 0.7 % (0.0-3.0); HEMATOCRIT 24.3 % (37.0-47.0); HEMOGLOBIN 7.6 gm/dL (12.0-15.0); LYMPHOCYTES 14.4 % (24.0-44.0); MCH 24.2 pg (26.0-34.0); MCHC 31.1 g/dL (28.0-37.0); MCV 77.9 fL (80.0-100.0); MONOCYTES 4.9 % (1.0-8.0); PLATELET COUNT 283 thou/uL (150-400); POLYS 79.8 % (36.0-66.0); RBC 3.12 mil/uL (4.20-5.00); RDW 16.1 % (10.5-14.5); WBC 9.5 thou/uL (4.0-11.0)
[2019-10-26 06:12] LABS: CALCIUM 7.4 mg/dL (8.5-10.1); MAGNESIUM 1.6 mg/dL (1.8-2.4); PHOSPHORUS 2.9 mg/dL (2.5-4.9); POTASSIUM 3.2 mmol/L (3.5-5.1); TOTAL BILIRUBIN 0.2 mg/dL (<0.1-1.0); TOTAL PROTEIN 7.5 g/dL (6.4-8.2)
[2019-10-26 07:00] VITALS: BP 120/76
--- NOTE | 2019-10-26 14:48 | NUR ---
PT ADMITTED RELATED TO CARMELO RECTAL ABCESS. CM REVIEWED CHART AND SPOKE WITH CARE TEAM. CM MET WITH PT AT BEDSIDE THIS DAY. PT IS A&O X4. CM ROLE INTRODUCED. PT INDICATED SHE LIVES IN A HOUSE WITH HER SPOUSE AND CHILDREN. PT INDICATED THERE AREN'T ANY STEPS. PT INDICATED SHE HAD BEEN INDEPDENENT WITH GAIT AND ADLS ROVING HAND. PT INDICATED HER PCP IS CHERRIE DELUCA AT [facility]. PT INIDCATED SHE IS IN FACT PATIENT PAY SHE LOST HER JOB IN APRIL. PT INDICATED SHE WOULD BE ABLE TO [facility] UPON DC. CM TO FOLLOW INDICATED WITH DC PLANNING.
[2019-10-26 19:13] VITALS: BP 126/68
--- NOTE | 2019-10-27 01:45 | NUR ---
PT IS ALERT AND ORIENTED X4.PT IS ON ROOM AIR.PT C/O PAIN AND PAIN MANAGEMENT WITH HYDROCODONE AND MORPHINE.PT NPO MIDNIGHT FOR DEBRIDEMENT OF ABCESS TOMORROW.PT IS ACCUCHECK ACHS ONE GLARGINE AND MODERATE DOSE HUMALOG N.PT AWARE SHE IS TO HAVE PROCEDURE TODAY. WILL CONTINUE TO MONITOR POC
[2019-10-27 07:00] VITALS: BP 100/70
--- NOTE | 2019-10-27 14:25 | NUR ---
Assess due to RD consult received for pt with wounds. Autoimmune hidradinitis suppurativa with abscesses requirment I/D today. Off unit. Has been admitted on several occasions. Poor diabetes control with A1C >11 repeatively since 03/2019. On insulin medication and carb control diet. Has received diet education in past. Wts remain obese and no signficant change from 230-240 lb. Low nutrition risk. Will followup in next 1-2 days however when pt available to determine intake trends and any further questions regarding diet.
[2019-10-27 15:01] VITALS: BP 125/87
--- NOTE | 2019-10-27 16:46 | NUR ---
Assumed pt care this am, pt was on NPO for I and D. VS stable, pain is managed with medications. 5 alda drains intact and draining serosanguinous fluid. Pt slept for most of the time since she got back from surgery. Medications nd diet are well tolerated.
[2019-10-27 19:11] VITALS: BP 130/82
--- NOTE | 2019-10-28 03:38 | NUR ---
PROGRESS PT A/O X4, LUNGS CLEAR ABDOMEN SOFT WITH NORMOACTIVE BS. PT VOIDING QS, UP AD ZUHAIR GAIT STEADY. 5 INCISIONS WITH 5 ALEJANDRO DRAINS TO PERIAREA 2 ANTERIOR 2 LATERAL AND ONE POSTERIOR, ALL COVERED WITH MESH PANTIES WITH ABD PADS FOR DRAINAGE. MODERATE AMOUNT OF BLOODY DRAINAGE NOTED, NO ODOR AND NO PURULENT MATTER NOTED. PAIN CONTROLLED WITH 2 MG MORPHINE IV PUSH AND HYDROCODONE PRN. IV ANTIBIOTICS CONTINUE. ACCUCHECKS AND SSI CONTINUE. CONTINUE POC.
[2019-10-28 03:52] VITALS: BP 115/76
[2019-10-28 07:05] VITALS: BP 123/81
--- NOTE | 2019-10-28 11:31 | HC ---
[facility] [place] [address] CONSULTATION Name: BRENDAN ROMANO Room #: 450- ADM IN M.R.#: [id number] Admission: 10/25/19 Attend Phys: Deo Fontenot MD Discharge: Date of : 85 Report #: [id number] THIS REPORT FOR: cc: FAM - No family physician/PCP CIELO - No family physician/PCP Justin Decker MD ~ CC: [facility] physician/PCP Chepe Fontenot DATE OF SERVICE: 10/26/2019 CHIEF COMPLAINT: Hidradenitis suppurativa. HISTORY OF PRESENT ILLNESS: This is a 34-year-old female patient with whom I am familiar from previous hospitalization in the distant past, who was admitted with progressive pain in her gluteal and groin region. She has a long history of hidradenitis suppurativa. She has developed increasing drainage and pain in these areas and is admitted for further evaluation and treatment. She has been seen by General Surgery. No specific plans for surgical intervention have been made as of yet. PAST MEDICAL HISTORY: Positive for history of diabetes mellitus, poorly controlled; obesity; chronic anemia and hidradenitis reparative. FAMILY HISTORY: Positive for diabetes and coronary artery disease. SOCIAL HISTORY: Positive for smoking cigarettes, half pack per week. No current alcohol use. CURRENT MEDICATIONS: Include insulin, tramadol and ertapenem. ALLERGIES: No known drug allergies. REVIEW OF SYSTEMS: CONSTITUTIONAL: The patient denies fever, chills, or weight loss. NEUROLOGICAL: The patient denies focal weakness, numbness or tingling. EYES: The patient denies visual changes, redness, or drainage. ENT: The patient denies earache, nasal drainage or sore throat. CARDIOVASCULAR: The patient denies chest pain, palpitations or diaphoresis. PULMONARY: The patient denies cough or shortness of breath. GASTROINTESTINAL: The patient denies nausea, vomiting, diarrhea or abdominal pain. ORTHOPEDIC: The patient does complain of pain in the gluteal and groin region as well as mildly in the axillary region. Other systems in a 14-point review of systems are negative. [facility] [address] [place] [address] CONSULTATION Name: BRENDAN ROMANO Room #: 450-P [facility] IN ..#: [id number] Admission: 10/25/19 Attend Phys: Deo Fontenot MD Discharge: Date of : 85 Report #: [id number] PHYSICAL EXAMINATION: VITAL SIGNS: Include temperature 37.0, pulse 84, respiratory rate 18, blood pressure 120/76. GENERAL: This is a well-developed, well-nourished female patient who appears to be in mild to moderate discomfort. HEENT: Head normocephalic. Nose and throat are clear. NECK: Supple. LUNGS: Clear. HEART: Regular. CHEST: Axillae region demonstrates a little bit of nodularity. There is really not in any acute drainage or areas of fluctuance noted. ABDOMEN: Soft. Bowel sounds present. EXTREMITIES: Examination of the groin demonstrates both labial and gluteal induration, drainage and odor. I cannot palpate a discrete abscess, but I think they are probably multiple abscesses in these regions. Extremities are without clubbing or cyanosis. NEUROLOGIC: The patient is alert and oriented and appropriate. LABORATORY STUDIES: Include sodium 137, potassium 3.2, chloride 106, CO2 of 22, BUN 8, creatinine 1.0, glucose 141. Albumin 2.0. White blood cell count 9.5 with a hemoglobin of 7.6 and hematocrit of 24.3. CLINICAL IMPRESSION: 1. Hidradenitis suppurativa with exacerbation involving the labial and gluteal region bilaterally. 2. Uncontrolled diabetes. 3. Hypokalemia. 4. History of tobacco abuse. 5. Morbid obesity, body mass index of 32.8. RECOMMENDATIONS: At this point in time, we will recommend Hibiclens scrubs to the areas affected. We will recommend intravenous antibiotics. I think this will likely require surgical intervention. General Surgery is seeing her. We will have further discussion with them. The patient is agreeable to current plan of care. I appreciate being asked to see her in consultation. <ELECTRONICALLY SIGNED> By: Justin Decker MD 10/28/19 1131 1702 0215 Justin Decker MD /nt
[2019-10-28] MEDS ORDERED: AUGMENTIN 875-1 EACH PO (13:04)
[2019-10-28 14:46] VITALS: BP 123/81
--- NOTE | 2019-10-28 15:36 | NUR ---
PT ALERT AND ORIENTED TIMES FOUR. VSS. PT C/O PAIN, BUT REFUSED TO TAKE ANY PAIN MEDICATIONS. PT TOLERATES MEDS AND MEALS. PT UP AB ZUHAIR WITH STEADY GAIT. ALEJANDRO DRAINS IN PLACE. WILL CONTINUE TO MONITOR.
== END 2019-10-28 15:46 | disposition home or self-care (01) | DRG 603 ==
LOC: ER 01:08 → 4W 06:51 → EROBS 06:51 → 4W 14:55
PROVIDERS: Emergency Medicine; Internal Medicine; ADMIT Internal Medicine
PROC: 0H98XZZ Drainage of Buttock Skin, External Approach (ICD-10-PCS; principal; 2019-10-27)
DX: L02.31 Cutaneous abscess of buttock (principal); N76.4 Abscess of vulva; L02.419 Cutaneous abscess of limb, unspecified; L02.215 Cutaneous abscess of perineum; L02.214 Cutaneous abscess of groin; L73.2 Hidradenitis suppurativa; L03.317 Cellulitis of buttock; E11.9 Type 2 diabetes mellitus without complications; E11.65 Type 2 diabetes mellitus with hyperglycemia; E87.6 Hypokalemia; E66.01 Morbid (severe) obesity due to excess calories; F17.210 Nicotine dependence, cigarettes, uncomplicated; D64.9 Anemia, unspecified; Z71.6 Tobacco abuse counseling; Z82.49 Family history of ischemic heart disease and other diseases of the circulatory system; Z83.3 Family history of diabetes mellitus; Z68.32 Body mass index [BMI] 32.0-32.9, adult; Z79.899 Other long term (current) drug therapy
CPT/HCPCS: 10040; 50010; 50101; 50386; 50403; 56525; 57103; 62110; 62900; 70005

== ENCOUNTER → 2020-08-02 | Emergency (ER) | payer OTHER ==
[~2020-08-02] VITALS: Ht 180.3 cm; Wt 109.8 kg
[~2020-08-02] MED LIST changes: +AUGMENTIN 875-1 EACH PO
[2020-08-02 16:59] VITALS: BP 135/89
== END ==
LOC: ER 16:56
DX: S90.822D Blister (nonthermal), left foot, subsequent encounter (principal); Z53.21 Procedure and treatment not carried out due to patient leaving prior to being seen by health care provider; X58.XXXD Exposure to other specified factors, subsequent encounter

== ENCOUNTER 2021-06-15 21:11 | Inpatient (IN) | payer OTHER ==
[~2021-06-15] VITALS: Ht 152.4 cm; Wt 123.5 kg
--- NOTE | ~2021-06-15 | O ---
[facility] [address] OPERATIVE REPORT Name: BRENDAN ROMANO Room #: 461-P ADM IN M.R.#: [id number] Admission: 06/16/21 Attend Phys: Brock Esparza MD Discharge: Date of : 85 Report #: [id number] THIS REPORT FOR: cc: Patrick Aiken, Patrick Rodriguez,Chepe Melendez MD ~ DATE OF SERVICE: 06/16/2021 PREOPERATIVE DIAGNOSES: Bilateral buttock and vulvar hidradenitis with abscess and a right axillary abscess. POSTOPERATIVE DIAGNOSES: Bilateral buttock and vulvar hidradenitis with abscess and a right axillary abscess. OPERATIONS: 1. Incision and drainage of bilateral buttock and vulvar hidradenitis abscesses. 2. Incision and drainage of right axillary abscess. SURGEON: Chepe Glover MD ANESTHESIA: General. ESTIMATED BLOOD LOSS: Minimal. SPECIMENS: Buttock hidradenitis. DESCRIPTION OF PROCEDURE: After informed consent was obtained, the patient was brought to the operating room and placed supine. SCDs were placed and working, preoperative antibiotics were administered, general anesthesia was induced. The patient was placed in the lithotomy position and the areas were then prepped and draped in usual sterile fashion with Betadine. Excision of the bilateral buttock abscesses was undertaken. The areas were grasped with the grasper and they were incised with cautery. There was good hemostasis. Pus was expressed. Elliptical incisions of skin were taken from both sides. The vulva on the right side had an abscess and this was drained by incising it with cautery. The area was then irrigated and packed with gauze. The right axilla had two areas of purulent drainage. These were incised with cautery. There was good hemostasis. Pus was expressed. The areas were then irrigated and packed with gauze. Sterile dressings were applied. COMPLICATIONS: None. [facility] [address] [place] [address] OPERATIVE REPORT Name: BRENDAN ROMANO Room #: 461-P [facility]#: [id number] Admission: 06/16/21 Attend Phys: Brock Esparza MD Discharge: Date of : 85 Report #: [id number] DISPOSITION: The patient was taken to recovery in satisfactory condition. By: 1619 1700 Chepe Gloevr MD /nt
[~2021-06-15 21:11] MED LIST changes: +CLEOCIN HCL150 MG PO; +MOBIC7.5 MG PO
[2021-06-15 21:17] VITALS: BP 155/98
[2021-06-15] MEDS ORDERED: GABAPENTIN600 M1 PO (21:21)
[2021-06-15] MEDS ORDERED: VICTOZA 3-0.6 MG/0.1 SUBQ (21:22)
[2021-06-15 22:35] LABS: URINE BILIRUBIN NEGATIVE (Negative); URINE BLOOD 3+ (Negative); URINE CLARITY CLEAR; URINE COLOR YELLOW; URINE GLUCOSE-RANDOM* 3+ (Negative); URINE KETONES NEGATIVE (Negative); URINE NITRITE-REFLEX NEGATIVE (Negative); URINE PROTEIN (DIPSTICK) NEGATIVE (Negative); URINE UROBILINOGEN 0.2 E.U./dl (0.2-1.0)
[2021-06-15 22:36] LABS: URINE LEUKOCYTES-REFLEX 1+ (Negative)
[2021-06-15 22:55] LABS: CRYSTALS None Seen /LPF (None Seen); MUCUS None Seen strn/LPF (None Seen); SQUAMOUS 4-10 Moderate /LPF (0-3); URINE WBC-REFLEX 6-15 Few /HPF (0-5)
[2021-06-15 23:02] LABS: CASTS None Seen /LPF (None Seen)
[2021-06-15 23:03] LABS: ABSOLUTE NEUTROPHILS 7.2 thou/uL (1.4-8.2); BASOPHILS 0.2 % (0.0-2.0); HEMATOCRIT 26.3 % (37.0-47.0); HEMOGLOBIN 8.2 gm/dL (12.0-15.0); LYMPHOCYTES 14.9 % (24.0-44.0); MCH 23.1 pg (26.0-34.0); MCHC 31.1 g/dL (28.0-37.0); MCV 74.5 fL (80.0-100.0); MONOCYTES 5.2 % (1.0-8.0); PLATELET COUNT 304 thou/uL (150-400); POLYS 78.7 % (36.0-66.0); RBC 3.53 mil/uL (4.20-5.00); RDW 15.1 % (10.5-14.5); WBC 9.1 thou/uL (4.0-11.0)
[2021-06-15 23:05] LABS: CALCIUM 8.1 mg/dL (8.5-10.1); CREATININE 1.3 mg/dL (0.6-1.0); POTASSIUM 4.4 mmol/L (3.5-5.1)
[2021-06-15 23:11] LABS: ALBUMIN 2.3 g/dL (3.4-5.0); TOTAL BILIRUBIN 0.2 mg/dL (0.2-1.0); TOTAL PROTEIN 8.6 g/dL (6.4-8.2)
[2021-06-16] VITALS (10 sets, daily range): BP systolic 109–130; BP diastolic 64–85
[2021-06-16 02:14] LABS: HEMOGLOBIN 7.7 gm/dL (12.0-15.0); MCH 23.2 pg (26.0-34.0); MCHC 30.9 g/dL (28.0-37.0); MCV 75.1 fL (80.0-100.0); RBC 3.33 mil/uL (4.20-5.00); RDW 15.5 % (10.5-14.5); WBC 9.5 thou/uL (4.0-11.0)
[2021-06-16 02:58] LABS: CALCIUM 7.7 mg/dL (8.5-10.1); CREATININE 1.1 mg/dL (0.6-1.0); POTASSIUM 4.2 mmol/L (3.5-5.1)
--- NOTE | 2021-06-16 05:10 | NUR ---
PT ADMITTED TO THE UNIT THIS AM AT 03:30 WITH C/O MULTIPLE ABSCESS ON GROIN,LABIA ,BUTTOCKS AND LINDA AXILA.PT IS A/O X4.PT IS UP TO BATHROOM WITH SBA.PT C/O PAIN ON BUTTOCKS AND GROIN AND PAIN MANAGED WITH MORPHINE.ADMISSION HISTORY AND EDUCATION AND ASSESSMENT DONE.PICTURE TAKEN.WILL CONTINUE TO MONITOR PER POC
[2021-06-16 11:57] LABS: HEMATOCRIT 24.9 % (37.0-47.0); HEMOGLOBIN 7.8 gm/dL (12.0-15.0)
[2021-06-16 14:08] LABS: % SATURATION 10 % (20-39); IRON 18 ug/dL (50-170); TIBC 179 ug/dL (250-450)
--- NOTE | 2021-06-16 14:15 | NUR ---
PT ADMITTED RELATED TO MULTIPLE ABSCESS. CM REVIEWED CHART AND SPOKE WITH CARE TEAM. CM MET WITH PT AT BEDSIDE THIS DAY. PT APPEARED TO BE A&O X4. CM ROLE INTRODUCED. PT INDICATED THAT SHE RESIDES IN A RANCH STYLE HOUSE WITH HER SPOUSE AND KIDS WITH NO STEPS TO ENTER AND NO STEPS INSIDE. 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 PT INDICATED THAT HER PCP IS DR. CAMILLA ROSS AT [facility] [place][NOTE 2]. PT INDICATED THAT SHE IS CURRENTLY PATIENT PAY BUT THAT HER INSURANCE THROUGH HER EMPLOYER WILL BE EFFECTIVE OF 07/10/21. PT INDICATED SHE PLANS TO RETURN HOME ONCE MEDICALLY STABLE. PT IS ON IV VANC AND IV CEFEPIME, ID, WC, AND GENERAL SURGERY CONSULTED. CM FOLLOWING REGARDING DC PLANNING.
[2021-06-17 03:49] VITALS: BP 122/72
--- NOTE | 2021-06-17 05:16 | HC ---
[facility] [place] [address] CONSULTATION Name: BRENDAN ROMANO Room #: 461-P ADM IN M.R.#: [id number] Admission: 06/16/21 Attend Phys: Brock Esparza MD Discharge: Date of : 85 Report #: [id number] THIS REPORT FOR: cc: Patrick Aiken Brady DO Barry, Joseph W. MD ~ DATE OF SERVICE: 06/16/2021 INFECTIOUS DISEASE CONSULTATION ATTENDING PHYSICIAN: Dr. Esparza. REASON FOR EVALUATION: Exacerbation of hidradenitis suppurativa involving the perineal site. HISTORY OF PRESENT SUBJECTIVE: Chart reviewed. The patient examined. This is a 36-year-old with known history of diabetes mellitus, apparently poorly controlled and obesity, who has a longstanding issues with hidradenitis suppurativa. She always has low-grade issues. However, over the course of last three weeks, increasing pain associated with the left medial posterior perineum. Typically, it drains and often resolves. This has persisted. She has taken some anti-inflammatories. It is not clear that if she has had any fevers or chills. She notes additional site over the right labia as well. Both the sites are quite painful at this point. Denies any significant pulmonary or gastrointestinal related complaints. She has not been on any antibiotics recently. Last hospitalization at this facility was back in 10/2019. Evaluation additionally included urinalysis, which showed some moderate pyuria and bacteriuria. Glucose of 404 and albumin of 2.3. Coronavirus testing was negative. Wound Care and General Surgery were consulted. She empirically started on antimicrobial therapy with cefepime and vancomycin. ALLERGIES: None known. CURRENT MEDICATIONS: Include enoxaparin, vancomycin, cefepime, insulin sliding scale, acetaminophen, and ondansetron as needed. PAST MEDICAL HISTORY: As described above, diabetes mellitus type 2, poorly controlled; chronic anemia and hidradenitis suppurativa. SOCIAL HISTORY: Nonsmoker. No ethanol. No illicit drug use. FAMILY HISTORY: Noncontributory. REVIEW OF SYSTEMS: Otherwise, unremarkable with the exception of the above. PHYSICAL EXAMINATION: [facility] [address] [place] [address] CONSULTATION Name: BRENDAN ROMANO Room #: 461-P [place] IN [facility]#: [id number] Admission: 06/16/21 Attend Phys: Brock Esparza MD Discharge: Date of : 85 Report #: [id number] GENERAL: She is generally alert. She is in moderate distress. She is not overtly toxic. Appears reasonably well nourished. VITAL SIGNS: Temperature 98.3, pulse 88, respirations 18, and blood pressure 116/73. SKIN: Warm and dry. No rashes. HEENT: Normocephalic. Extraocular muscles are intact. NECK: Supple. LUNGS: Somewhat diminished otherwise equal breath sounds. HEART: Regular. I do not appreciate a murmur. ABDOMEN: Mildly distended, somewhat firm, nontender. Site involving the left medial buttock is essentially draining purulent material, markedly inflamed, officially is quite tender to touch. Also on aspect of the right labia, there is an open site, again moderate to marked inflammatory surface, site is quite tender as well. LABORATORY DATA: CRP of 83.6. Electrolytes: Sodium 130, potassium 4.2, chloride 169, bicarbonate is 24, anion gap of 5, BUN and creatinine 50 and 1.1. Glucose, repeat was 354. Estimated GFR of 68. CBC: White count 9.5, H and H of 7.7 and 25.0 and platelets of 290. Urinalysis, 6 to 15 white cells and 10 to 30 bacteria. ASSESSMENT AND PLAN: Hidradenitis suppurativa, complicated by skin and soft tissue infection with abscesses, multifocal in the setting of poorly-controlled diabetes mellitus, also has chronic anemia. We will continue empiric therapy. She is not overtly toxic, admitted due to the fact that they are draining without difficulty. We will await surgery evaluation. We will need something to debulk these sites. Wound care is prescribed. More expectantly, try to improve her blood sugar control. Follow her hemoglobin, may at some point need transfusion support. Optimize nutritional status. We will add incentive spirometry. <ELECTRONICALLY SIGNED> By: Isidro Perez MD 06/17/21 0516 1023 0035 Isidro Perez MD /nt
--- NOTE | 2021-06-17 05:39 | NUR ---
ASSUMED CARE OF PT FROM OR AROUND 1900HRS. PT IS AOX4 AND LETS NEEDS BE KNOWN. PT IS UP AD ZUHAIR. PT REPORTED SOME PAIN; PRNS PROVIDED. PT DENIED NAUSEA OR SOA. ASSESSMENT CHARTED. ABX TREATMENT CONTINUED. PT SOILED POST OP DRESSING; DRESSING CHANGED. PT WAS ABLE TO GET COMFORTABLE AND SLEEP PART OF THE SHIFT. VSS AND NO S/S OF ACUTE DISTRESS. WILL CONTINUE TO MONITOR FOR CHANGES.
[2021-06-17 07:56] VITALS: BP 128/61
[2021-06-17 16:42] VITALS: BP 138/83
--- NOTE | 2021-06-17 20:02 | NUR ---
Assumed pt care tjis am vs stable, wound care and dressing change done. Joanie is managed with medications partial relief is noted, Diet and medicatiosn are tolerated well. Endorsed ot the night nurse.
[2021-06-17 20:41] VITALS: BP 134/84
--- NOTE | 2021-06-18 03:22 | NUR ---
Pt A/OX4,VSS. C/o pain/nausea medicated per EMAR with relief reported. Up ad ludwig w/o any problems. Dsgs in all I&D sites C/D/I,hesitant to have them changed at HS will attempt again. Resting quietly at this time w/o any distress,will continue to monitor pt.
[2021-06-18 06:01] LABS: ABSOLUTE NEUTROPHILS 7.8 thou/uL (1.4-8.2); BASOPHILS 0.2 % (0.0-2.0); EOSINOPHILS 0.5 % (0.0-3.0); HEMATOCRIT 23.2 % (37.0-47.0); HEMOGLOBIN 7.3 gm/dL (12.0-15.0); LYMPHOCYTES 18.1 % (24.0-44.0); MCH 23.4 pg (26.0-34.0); MCHC 31.3 g/dL (28.0-37.0); MCV 74.6 fL (80.0-100.0); PLATELET COUNT 302 thou/uL (150-400); POLYS 77.2 % (36.0-66.0); RBC 3.11 mil/uL (4.20-5.00); RDW 15.2 % (10.5-14.5); WBC 10.1 thou/uL (4.0-11.0)
[2021-06-18 07:10] LABS: ANION GAP 9 mmol/L (7-16); BUN 17 mg/dL (7-18); CALCIUM 7.5 mg/dL (8.5-10.1); CHLORIDE 110 mmol/L (98-107); CHOLESTEROL 84 mg/dL (<200); CO2 19 mmol/L (21-32); CREATININE 1.1 mg/dL (0.6-1.0); GLUCOSE 255 mg/dL (74-106); HDL CHOLESTEROL 27 mg/dL (>40); LDL CHOLESTEROL 40 mg/dL (<100); PHOSPHORUS 2.1 mg/dL (2.5-4.9); POTASSIUM 3.8 mmol/L (3.5-5.1); SODIUM 138 mmol/L (136-145); TC:HDL 3.1 Ratio (Not establshd); TRIGLYCERIDE 86 mg/dL (<150); VLDL 17 mg/dL (<40)
[2021-06-18 08:15] VITALS: BP 121/79
--- NOTE | 2021-06-18 16:22 | NUR ---
A/O X 4. ROOM AIR. AD ZUHAIR. RIGHT AC IV WITH NS INFUSING @ 75 MLS/HR. CONT B/B. WOUND CARE COMPLETED-BILATERAL UNDERARMS, GROIN, BUTTOCKS-ALOT OF DRAINAGE. STILL NEED OCCULT STOOL. MORPHINE AND NORCO GIVEN PRN. TOLERATING IV ABT WELL, NO ADVERSE EFFECTS NOTED.
[2021-06-18 16:35] VITALS: BP 133/91
[2021-06-18 20:03] VITALS: BP 130/85
[2021-06-19 03:05] LABS: GLYCOHEMOGLOBIN (HGB A1C) 11.6 % (4.8-5.6)
[2021-06-19 05:48] LABS: ABSOLUTE NEUTROPHILS 4.9 thou/uL (1.4-8.2); BASOPHILS 0.2 % (0.0-2.0); EOSINOPHILS 0.7 % (0.0-3.0); HEMOGLOBIN 7.8 gm/dL (12.0-15.0); LYMPHOCYTES 17.2 % (24.0-44.0); MCH 23.3 pg (26.0-34.0); MCHC 31.2 g/dL (28.0-37.0); MCV 74.7 fL (80.0-100.0); MONOCYTES 6.8 % (1.0-8.0); PLATELET COUNT 329 thou/uL (150-400); POLYS 75.1 % (36.0-66.0); RBC 3.35 mil/uL (4.20-5.00); RDW 15.5 % (10.5-14.5); WBC 6.5 thou/uL (4.0-11.0)
--- NOTE | 2021-06-19 05:49 | NUR ---
Pt A/OX4,VSS. Pt is up ad ludwig w/IV pole. C/o pain to abscess areas medicated with Morphine with some relief reported. Dsg change done as ordered,pt tolorated well. New IV inserted on RAC with one attempt, IVF infusing w/o any problems noted. Resting w/o any distress. Will continue to monitor pt.
[2021-06-19 06:10] LABS: CALCIUM 7.6 mg/dL (8.5-10.1); MAGNESIUM 1.9 mg/dL (1.8-2.4); PHOSPHORUS 2.4 mg/dL (2.5-4.9)
[2021-06-19 07:42] VITALS: BP 130/90
[2021-06-19 11:22] VITALS: BP 113/69
--- NOTE | 2021-06-19 17:03 | NUR ---
Chart reviewed and case discussed with the care team. Pt is up ad ludwig and continues with iv atb and wound care. Pt is currently uninsured. Possible transition to po atb however cultures are still pending. Pt instructed per wound care that she will need f/u with dermotology Dr. Obregon. Pt may need assist with wound care. Will follow.
--- NOTE | 2021-06-19 18:17 | NUR ---
WOUND CARE PROVIDED ORDERED. PT NPO AFTER MIDNIGHT FOR I&D IN THE MORNING.
[2021-06-19 19:21] VITALS: BP 116/72
--- NOTE | 2021-06-20 03:00 | NUR ---
ASSUMED PT CARE THIS PM. PT IS ALERT AND ORIENTEDX4. PT DID NOT C/O PAIN. DRSG CHANGED WAS DONE AND WAS WELL TOLERATED BY PT. VS ARE WITHIN NORMAL RANGE. MEDS WERE GIVEN PER EMAR ORDERS. PT IS ON RA. PT DID NOT VERBALIZE ANY CONCERNS. PT IS CURRENTLY NPO. FALL PRECAUTIONS IN PLACE. WILL CONTINUE TO MONITOR.
[2021-06-20 07:52] VITALS: BP 115/73
[2021-06-20] MEDS ORDERED: GLUCOTROL5 MG PO (12:30)
[2021-06-20] MEDS ORDERED: AMOX TR-K CLV1 EAC4 PO (12:30)
[2021-06-20] MEDS ORDERED: TRADJENTA5 MG PO (12:30)
[2021-06-20 13:11] VITALS: BP 115/73
--- NOTE | 2021-06-20 14:11 | NUR ---
TODAY THIS PT HAS BEEN GEARING UP FOR D/C SHE HAS REFUSED HER SUREGRY EARLIER THIS MORNING AND HAS CHANGED HER OWN DRESSINGS. SHE HAS OTHERWISE BEEN TOLERATING HER MEDICATION WELL AND IS WAITING FOR HER RIDE
--- NOTE | 2021-06-21 11:08 | PATH ---
[facility] [address] [place] [address] PATHOLOGY RPT PROCEDURE Name: SCARLET ROMANO Piedad Room #: 461-P [facility] IN M.R.#: [id number] Admission: 06/16/21 Date of : 85 Discharge: 06/20/21 Report #: [id number] Path Case #: [id number] [facility] Accession Number: [id number] . 01 Material submitted: . buttock - BUTTOCKS HIDRADENITIS . 01 Clinical history: . EXCISION AXILLARY HYDRADENITIS EXCISION HIDRADENITIS RIGHT AXILLA, VULVAR AND BUTTOCKS ABSCESS . 02 Diagnosis: "Buttocks hidradenitis", excision: - Deep dermis with marked acute and chronic inflammation and fibrinopurulent debris consistent with abscess. - Negative for atypia or malignancy. . (SCA:mml; 06/20/2021) QLM 06/20/2021 1333 Local . 02 Electronically signed: . Best Redmond DO, Pathologist NPI- [id number] . 01 Gross description: . The specimen is received in formalin, labeled "Scarlet Romano, buttocks hidradenitis". Received are multiple segments of light lundy to dark lundy skin with underlying soft tissue measuring 5.8 x 4.9 x 1.5 centimeters in aggregate dimensions. Cut surfaces reveal pale lundy to yellow cut surfaces with possible signs of abscess. Dye Winch Operator sections are submitted in cassette A1.([facility]; 06/19/2021) [facility] 06/19/2021 1126 Local . 02 Pathologist provided ICD-10: L08.9 . 02 CPT . 623289 Specimen Comment: A courtesy copy of this report has been sent to [phone], [phone] Specimen Comment: [phone], Specimen Comment: Report sent to , DR WHYTE / DR CASILLAS Performed at: [address], [place] [id number] MD Reid Chen MD Phone: [phone] [place] [address] PATHOLOGY RPT PROCEDURE Name: SCARLET ROMANO Room #: 461-P DIS IN M.R.#: [id number] Admission: 06/16/21 Date of : 85 Discharge: 06/20/21 Report #: [id number] Path Case #: [id number] Performed at: [address], [place], [place] [id number] MD Go Andrews MD Phone: [phone]
--- NOTE | 2021-06-22 10:06 | HC ---
[facility] [place] [address] CONSULTATION Name: BRENDAN ROMANO Room #: 461-P [facility] IN .R.#: [id number] Admission: 06/16/21 Attend Phys: Brock Esparza MD Discharge: 06/20/21 Date of : 85 Report #: [id number] THIS REPORT FOR: cc: Patrick Aiken, Lebron Melara MD ~ DATE OF SERVICE: 06/16/2021 WOUND CARE CONSULTATION PERSONAL PHYSICIAN: Patrick Aiken MD CHIEF COMPLAINT: Hidradenitis with abscess. HISTORY OF PRESENT ILLNESS: This is a 36-year-old black female with history of hidradenitis suppurativa with recurrent abscesses in bilateral axilla, left gluteal cleft on the right labia. The patient was admitted through the Emergency Department with draining abscesses and significant amount of purulence and pain. The patient is scheduled to have incision and drainage later today. The patient states unfortunately oral antibiotics do not seem to do anything to control these flare ups and the only thing is a surgical excision. The patient denies any other recent illnesses or concerns. PAST MEDICAL HISTORY: Significant for recurrent hidradenitis suppurativa in multiple parts of her body with multiple histories of resection, diabetes mellitus type 2, morbid obesity, and chronic anemia. CURRENT MEDICATIONS: Multiple, reviewed the patient's medication list. DRUG ALLERGIES: None. SOCIAL HISTORY: The patient has a remote history of smoking. FAMILY HISTORY: Not pertinent to current medical condition. REVIEW OF SYSTEMS: CONSTITUTIONAL: The patient denies fevers or chills. NEUROLOGIC: The patient denies numbness or tingling, weakness in arms or legs. EYES: No complaints. EARS, NOSE AND THROAT: No complaints. CARDIAC: The patient denies chest pain, palpitations, peripheral edema. RESPIRATORY: The patient denies shortness of breath, cough or wheezing. GASTROINTESTINAL: The patient denies nausea, vomiting, abdominal pain. GENITOURINARY: The patient denies urgency or frequency. MUSCULOSKELETAL: No complaints. SKIN: The patient has multiple areas of hidradenitis, bilateral axilla, left [facility] [address] [place] [address] CONSULTATION Name: BRENDAN ROMANO Room #: 461-P [facility] IN [facility]#: [id number] Admission: 06/16/21 Attend Phys: Brock Esparza MD Discharge: 06/20/21 Date of : 85 Report #: [id number] gluteal cleft and left labia. PHYSICAL EXAMINATION: VITAL SIGNS: Stable. The patient is afebrile. GENERAL: This is alert and oriented x3, morbidly obese white female who is in no acute distress. HEENT: Normocephalic, atraumatic. Mucous membranes are moist. Pupils are round. Sclerae white. NECK: Supple, nontender. LUNGS: Clear. HEART: Regular. ABDOMEN: Obese, soft, nontender. EXTREMITIES: The patient moves all extremities without difficulty. Evaluation of bilateral axilla reveals purulent drainage coming from multiple subcutaneous abscesses, exquisitely tender to palpation. Evaluation of left gluteal region reveals an abscess in the inferior gluteal cleft with significant amount of purulent drainage, exquisitely tender to palpation. Left leg, there is a similar subcutaneous abscesses draining purulent discharge. NEUROLOGIC: Cranial nerves II-XII are grossly intact. Motor and sensory are grossly intact. LABORATORY DATA: White count 10.1, hemoglobin 7.3. Albumin 2.3. IMPRESSION: 1. Hidradenitis suppurativa with multiple subcutaneous abscesses. 2. Diabetes mellitus. 3. Morbid obesity. 4. Severe protein calorie malnutrition, albumin 2.3. PLAN: The patient is already started on IV antibiotics as well as General Surgery excision drainage of multiple sites. We will continue local wound care at this time as well as make sure we maximize the patient's oral protein supplementation for healing. Continue all other current medications. <ELECTRONICALLY SIGNED> By: Lebron Wooten MD 06/22/21 1006 1422 0000 Lebron Wooten MD /nt
== END 2021-06-20 14:56 | disposition home or self-care (01) | DRG 603 ==
LOC: ER 21:11 → EROBS 06-16 00:43 → 4W 06-16 03:27
PROVIDERS: Internal Medicine; Nurse Practitioner Family; Physician Assistant; ADMIT Hospitalist; ATTEND Hospitalist
PROC: 0Y910ZZ Drainage of Left Buttock, Open Approach (ICD-10-PCS; principal; 2021-06-16)
PROC: 0Y900ZZ Drainage of Right Buttock, Open Approach (ICD-10-PCS; principal; 2021-06-16)
PROC: 0X940ZZ Drainage of Right Axilla, Open Approach (ICD-10-PCS; principal; 2021-06-16)
DX: L03.111 Cellulitis of right axilla (principal); Z68.43 Body mass index [BMI] 50.0-59.9, adult; L02.31 Cutaneous abscess of buttock; D63.1 Anemia in chronic kidney disease; E66.01 Morbid (severe) obesity due to excess calories; L02.411 Cutaneous abscess of right axilla; Z20.822 Contact with and (suspected) exposure to COVID-19
CPT/HCPCS: 10040; 50010; 50101; 50386; 62110; 62900; 70005

== ENCOUNTER 2021-08-05 05:11 | Inpatient (IN) | payer BC, OTHER ==
[~2021-08-05] VITALS: Ht 180.3 cm; Wt 123.6 kg
[~2021-08-05 05:11] MED LIST changes: +AMOX TR-K CLV1 EAC4 PO; +GABAPENTIN600 M1 PO; +GLUCOTROL5 MG PO; +TRADJENTA5 MG PO; +VICTOZA 3-0.6 MG/0.1 SUBQ
[2021-08-05 05:17] VITALS: BP 130/78
[2021-08-05] MEDS ORDERED: VICTOZA0.6 MG/0.1 SUBQ (05:21)
[2021-08-05] MEDS ORDERED: JARDIANCE25 MG PO (05:21)
[2021-08-05 07:42] LABS: ABSOLUTE NEUTROPHILS 4.1 thou/uL (1.4-8.2); EOSINOPHILS 0.5 % (0.0-3.0); HEMATOCRIT 25.7 % (37.0-47.0); HEMOGLOBIN 7.9 gm/dL (12.0-15.0); LYMPHOCYTES 11.7 % (24.0-44.0); MCH 22.6 pg (26.0-34.0); MCHC 30.6 g/dL (28.0-37.0); MONOCYTES 5.5 % (1.0-8.0); PLATELET COUNT 258 thou/uL (150-400); POLYS 82.3 % (36.0-66.0); RBC 3.48 mil/uL (4.20-5.00); RDW 17.5 % (10.5-14.5)
[2021-08-05 07:46] LABS: CALCIUM 7.9 mg/dL (8.5-10.1); CREATININE 1.4 mg/dL (0.6-1.0)
[2021-08-05 07:52] LABS: ALBUMIN 2.1 g/dL (3.4-5.0); TOTAL BILIRUBIN 0.1 mg/dL (0.2-1.0); TOTAL PROTEIN 8.5 g/dL (6.4-8.2)
[2021-08-05 09:56] VITALS: BP 111/64
[2021-08-05 10:40] VITALS: BP 106/65
[2021-08-05 16:48] VITALS: BP 99/58
--- NOTE | 2021-08-05 18:03 | NUR ---
ADMISSION NOTE: PT ADMITTED APPROX 1030. PT ALERT AND ORIENTED X 4. PT COMPLAINS OF PAIN 10/10 ON LEGS AND BUTTOCKS FROM LESIONS. PT ON RA. CONSENTS SIGNED VERBALLY AND IN CHART. PT UP TO BSC INDEPENDENTLY. ORIENTED PT TO ROOM, WITH CALL LIGHT AND BEDSIDE TABLE AT BEDSIDE. PT ON ENHANCED PRECAUTIONS DUE TO COVID+. PT DENIES NEEDS AT THIS TIME, WILL CONTINUE TO MONITOR.
[2021-08-05 19:43] VITALS: BP 103/64
[2021-08-05 23:43] VITALS: BP 105/86
[2021-08-06] VITALS (8 sets, daily range): BP systolic 103–134; BP diastolic 55–90
[2021-08-06 05:42] LABS: HEMATOCRIT 25.5 % (37.0-47.0); MCH 23.1 pg (26.0-34.0); MCHC 31.5 g/dL (28.0-37.0); MCV 73.4 fL (80.0-100.0); RBC 3.48 mil/uL (4.20-5.00); RDW 16.9 % (10.5-14.5); WBC 4.1 thou/uL (4.0-11.0)
[2021-08-06 05:48] LABS: CALCIUM 7.7 mg/dL (8.5-10.1); CREATININE 1.3 mg/dL (0.6-1.0)
--- NOTE | 2021-08-06 18:38 | NUR ---
RN ASSUMED PT'S CARE AT 0700AM, PT IS A&OX4, PT HAS PROCEDURE TODAY ( I/D BILATERAL AXILLARY, GROIN AND BUTTOCKS ABSCESSES ), PT 'S VS ARE STABLE, PT GETS UP TO BSC WITH ASSIST, RN HAS CHANGED INCISION DRESSING, PT'S PAIN HAS CONTORLLED BY THIS TIME, PT IS CONTINUING IV ABX AND IV FLUID. PT IS TOLERATIVE DM DIET AT DINNNER TIME.
--- NOTE | 2021-08-06 23:50 | NUR ---
Pt. c/o pain on I&D sites. BP at that time did not meet parameters for morphine IV. Assisted to use commode. BG at HS 423 and gave her 12 units insulin per SS as ordered. Explained to her that this RN will call SCREENER OPERATOR to inform her of high BG and another option for pain med. Meri Jaramillo ,SCREENER OPERATOR notified and orders received. Hydrocodone brought in room once verified by pharmacist but pt. got upset stating and asking why am I changing her pain regimen. Pt. informed that morphine will not be discontinued and she can have it prn as her BP allows and she can alternate hydrocodome as needed for pain. She then stated it will give her upset stomach and I offered food if she likes before taking it but refused. I then asked her per pharmacist request if somebody can bring her own insulin ( Victoza ) since our pharmacy does not carry it and if not we will use the hospital's insulin. Pt. got upset that I had to ask her if she can bring her own insulin and stated it's the first time somebody asked her to do that. Informed pt. that pharmacist just wants to know if family can bring it and I'm communicating it to her otherwise there are other options. Later on she asked to speak to charge nurse and since I'm the java developer consultant she does not want to talk to me. Multigrapher informed and pt. assigned to a different RN.
--- NOTE | 2021-08-07 00:42 | NUR ---
PT SLEEPING IN BED. PT AWAKENED TO NOTIFY OR NURSE ASSIGNMENT CHANGE. IVF INTACT. PT PROVIDED WATER. PT DENIED DISCOMFORT. EDUCATED TO CALL FOR ASSISTANCE AND IF ANY CHANGES NOTED IN HER DRESSING IN AXILLAE, GROIN, OR BUTTOCKS.
[2021-08-07 05:00] VITALS: BP 106/68
[2021-08-07 09:12] VITALS: BP 119/72
--- NOTE | 2021-08-07 12:27 | O ---
[facility] [place] [address] OPERATIVE REPORT Name: BRENDAN ROMANO Room #: 356-P ADM IN M.R.#: [id number] Admission: 08/05/21 Attend Phys: Trung Brewer MD Discharge: Date of : 85 Report #: [id number] THIS REPORT FOR: cc: Patrick Aiken, Patrick Rodriguez,Chepe Melendez MD ~ DATE OF SERVICE: 08/06/2021 PREOPERATIVE DIAGNOSIS: Bilateral axillary groin and buttock hidradenitis suppurativa with abscesses. POSTOPERATIVE DIAGNOSIS: Bilateral axillary groin and buttock hidradenitis suppurativa with abscesses. OPERATION: 1. Incision and drainage of bilateral axillae abscesses. 2. Incision and drainage of bilateral groin abscesses. 3. Incision and drainage of bilateral buttock abscesses. SURGEON: Chepe Glover. ANESTHESIA: General. ESTIMATED BLOOD LOSS: 50 mL SPECIMENS: 1. Left axilla fluid for culture and sensitivity. 2. Right groin fluid for culture and sensitivity. 3. Left buttock fluid for culture and sensitivity. DESCRIPTION OF PROCEDURE: After informed consent was obtained, the patient was brought to the operating room and placed supine. She had a positive COVID test and therefore all hospital COVID precautions were taken. General anesthesia was induced. The patient was placed supine on the table. The left axilla was addressed first. I used the cautery to incise multiple areas of abscesses. I unroofed the skin that was overlying a clump of abscesses. This was done with the cautery. It was then packed with sterile gauze. The right groin was drained in the same manner. Attention was then turned to the left groin. Again, she had multiple areas that were draining pus. The fluid was cultured. I used the cautery to unroof the skin from multiple loculated abscesses. This was done for the left side. The patient was then placed in the dorsal lithotomy position. The patient was then reprepped and draped. The buttock abscesses were on both sides. These were incised with cautery. Again, skin was unroofed on both sides to open up the pus pockets underneath. It was then packed with sterile gauze. Sterile dressings were applied. [address] [address] OPERATIVE REPORT Name: BRENDAN ROMANO Room #: 356-[facility] IN .R.#: [id number] Admission: 08/05/21 Attend Phys: Trung Brewer MD Discharge: Date of : 85 Report #: [id number] COMPLICATIONS: None. DISPOSITION: The patient was kept in the OR per protocol and taken back to the COVID unit. <ELECTRONICALLY SIGNED> By: Chepe Glover MD 08/07/21 1227 1118 1139 Chepe Glover MD /nt
[2021-08-07 17:05] VITALS: BP 127/84
--- NOTE | 2021-08-07 20:10 | NUR ---
PT ALERT AND ORIENTED X 4. PT COMPLAINS OF 10/10 PAIN, BUT DOES NOT FREQUENTLY ASK FOR PAIN MEDICATION. DRESSING CHANGE COMPLETED THIS SHIFT. PT DENIES NEEDS AT THIS TIME, WILL CONTINUE TO MONITOR.
[2021-08-07 21:15] VITALS: BP 117/71
[2021-08-08 04:50] VITALS: BP 121/72
[2021-08-08 07:40] VITALS: BP 121/82
--- NOTE | 2021-08-08 07:45 | NUR ---
PAIN MANAGEMENT WERE POC OVERNIGHT IV ABX. WOUND CARE WAS DONE AT PM SHIFT CHANGE. EDUCATED PT ON DRINKING LOTS OF FLUIDS DUE TO AMOUNT OF PAIN MEDICATION TO PREVENT CONSTIPATION. VSS.
--- NOTE | 2021-08-08 11:04 | NUR ---
WOUND CARE CONSULT; THE PATIENT HAD SURGERY TO THE BILATERAL AXILLARYS, THE BUTTOCKS AND THE BILATERAL GROIN RELATED TO ABCESSES. THE WOUNDS ARE VERY TENDER AND THE PATIENT IS GUARDED. THE PATIENT IS OBESE AND MUCH OF THE WOUNDBED HAS SUBCUTANEOUS FAT VISABLE. THERE IS NO ODOR IN THE WOUND BED. I PACKED THE WOUNDS WITH IODOFORM GAUZE,COVERED WITH ABD SECURED WITH TAPE. RECCOMMENDATIONS; -CONSULT DR RAO FOR WOUND CARE IN THE HOSPITAL AND OUTPATIENT CARE -FOR NOW USE IODOFORM GAUZE,ABD AND SECURE WITH TAPE DAILY/PRN DISCUSSED WITH YUDELKA
[2021-08-08 14:15] LABS: EOSINOPHILS 0.2 % (0.0-3.0); HEMOGLOBIN 6.5 gm/dL (12.0-15.0)
[2021-08-08 14:17] LABS: ABSOLUTE NEUTROPHILS 3.9 thou/uL (1.4-8.2); BASOPHILS 0.2 % (0.0-2.0); HEMATOCRIT 21.2 % (37.0-47.0); MCH 22.4 pg (26.0-34.0); MCHC 30.8 g/dL (28.0-37.0); MCV 72.7 fL (80.0-100.0); MONOCYTES 2.7 % (1.0-8.0); PLATELET COUNT 208 thou/uL (150-400); POLYS 85.9 % (36.0-66.0); RBC 2.92 mil/uL (4.20-5.00); RDW 17.4 % (10.5-14.5); WBC 4.6 thou/uL (4.0-11.0)
[2021-08-08 14:28] LABS: CALCIUM 7.6 mg/dL (8.5-10.1); CREATININE 1.5 mg/dL (0.6-1.0); MAGNESIUM 1.7 mg/dL (1.8-2.4)
[2021-08-08 14:44] LABS: ANISOCYTOSIS 1+; HYPOCHROMASIA 1+; MICROCYTES 1+
[2021-08-08 15:16] VITALS: BP 109/73
--- NOTE | 2021-08-08 15:52 | NUR ---
INITIAL ASSESSMENT: NAVEEN reviewed chart and spoke with nursing and attending physician. Pt was admitted from home. Pt had positive COVID test and was placed in Enhanced Isolation. Pt has not received a COVID vaccination. Pt is s/p I&D of bilateral axillae, groin and buttock abscesses. Pt is on IV abx. Wound care consulted. Pt is afebrile and not requiring O2. NAVEEN spoke with pt via phone. Introduced role of SW. Pt is alert/orientated x 4. Pt reports she lives at home. Prior to admission, pt was independent with ADLs. No use of DME. Pt now has health insurance. Pt states her PCP is Dr. Carol Fields at [facility]. Pt states she will plan to follow up with [facility] for wound care. Pt states she may not be able to do her own dressing changes. SW offered to arrange services. Pt is agreeable. NAVEEN confirmed pt's home address: [address] [place] [address] and phone number: [phone]. No preference voiced of HH agency. NAVEEN notified [facility] liaison of new referral. Discharge home is anticipated in 1-2 days. NAVEEN is following to assist as needed with discharge planning.
[2021-08-08 18:20] VITALS: BP 112/70
[2021-08-08 19:35] VITALS: BP 111/72
--- NOTE | 2021-08-08 19:42 | NUR ---
RN ASSUMED PT'S CARE AT 0700-1900PM, PT IS A&OX4, PT'S VS ARE STABLE, PT IS CONTINUING IV ABX , PAIN MANAGEMENT AND WOUND CARE , RN HAS CALLED SURGICAL DR AND HOSPITAL DR TO REPORT PT'S L AXILLARY I/D AREA IS BLEEDING, SURGICAL DR USE SUTURE BLEEDING AREA TO STOP BLEEDING, PT'S L AXILLARY I/D AREA HAS STOPPED BLEEDING, BUT CHECK PT'S HGB 6.5, PT HAS STARTED 1 UNIT BLOOD TRANSFUSION ABOUT 1828PM, NO TRANSFUSION REACHING BY THIS TIME, RN HAS REPORTED TO NEXT SHIFT TO KEEP EYES ON PT, PT'S VS AND O2SAT ARE STABLE BY THIS TIME.
[2021-08-08 22:10] VITALS: BP 110/68; BP 111/72
--- NOTE | 2021-08-09 04:49 | NUR ---
PROGRESS PT A/O X4. UP WITH SBA TO BSC. VOIDING QS. REPORTS PAIN TO BILATERAL AXILLAE AND GROIN AT AN 8 TO 10 TAKING MORPHINE AND HYDROCODONE WITH SOME EFFECT. DRESSINGS REMAIN C/D/I. PT DID EAT A HS SNACK AND DRANK SOME JUICE. ON 2 LITERS O2 VIA NC. IV ANTIBIOTICS ADMINISTERED ORDERED CONTINUE POC.
[2021-08-09 06:33] LABS: ABSOLUTE NEUTROPHILS 4.3 thou/uL (1.4-8.2); BASOPHILS 0.1 % (0.0-2.0); EOSINOPHILS 0.1 % (0.0-3.0); HEMATOCRIT 22.9 % (37.0-47.0); HEMOGLOBIN 7.3 gm/dL (12.0-15.0); LYMPHOCYTES 12.3 % (24.0-44.0); MCH 24.2 pg (26.0-34.0); MCV 75.6 fL (80.0-100.0); PLATELET COUNT 199 thou/uL (150-400); POLYS 83.5 % (36.0-66.0); RBC 3.03 mil/uL (4.20-5.00); RDW 18.2 % (10.5-14.5); WBC 5.1 thou/uL (4.0-11.0)
[2021-08-09 07:31] VITALS: BP 127/84
[2021-08-09 15:28] VITALS: BP 106/67
--- NOTE | 2021-08-09 19:53 | NUR ---
RN ASSUMED PT'S CARE AT 0700-1900PM, PT IS A&OX4, PT'S VS ARE STABLE AT DAY SHIFT, PT IS CONTINUING IV ABX AND WOUND CARE , PAIN MANAGEMENT, PT'S I/D WOUNDS DO NOT HAVE BLEEDING TODAY, PT'S HGB IS 7.4 TODAY, RN HAS REPORTED TO DR ABOUT PT'S POOR EATING AT MEAL TIME.
[2021-08-09 20:00] VITALS: BP 128/85
[2021-08-10 04:25] VITALS: BP 110/66
[2021-08-10 06:35] LABS: HEMATOCRIT 23.4 % (37.0-47.0); HEMOGLOBIN 7.4 gm/dL (12.0-15.0); MCH 23.9 pg (26.0-34.0); MCHC 31.5 g/dL (28.0-37.0); MCV 75.9 fL (80.0-100.0); RBC 3.09 mil/uL (4.20-5.00); RDW 18.4 % (10.5-14.5); WBC 6.2 thou/uL (4.0-11.0)
[2021-08-10 07:55] VITALS: BP 147/95
--- NOTE | 2021-08-10 07:57 | NUR ---
PROGRESS PT DROWSY AND SLEEPING MOST OF SHIFT. AWAKENS TO VERBAL STIMULI AND REPORTS PAIN AT A LEVEL OF 7 TO 10. LIQUID HYDROCODONE GIVEN ORDERED WITH EFFECT FOR MOST OF SHIFT REPORTED PAIN OF AN 8 THIS AM AND HYDROCODONE GIVEN PT SLEPT AFTER. DRESSINGS TO BILATERAL AXILLA, GROIN AND BUTTOCKS REMAIN C/D/I. POOR APPETITE NOTED DURING DAY AND NO INTAKE THIS SHIFT. CONTINUE POC.
--- NOTE | 2021-08-10 13:13 | NUR ---
NAVEEN reviewed chart and spoke with nursing and attending physician. Pt remains in Enhanced Isolation due to COVID. Pt is afebrile and on 1L of O2. Pt is on IV abx. Discharge home is anticipated for tomorrow. [facility] is able to accept pt on service. NAVEEN spoke with pt via phone to discuss discharge plan. Pt is aware and in agreement with discharge plan. Pt states she will have transportation home when discharged. NAVEEN is following to assist as needed with discharge planning.
--- NOTE | 2021-08-10 15:03 | NUR ---
WOUND CARE F/U; ATTEMPTED TO ASSIST THE RN TODAY WITH THIS MORE COMPLEX DRESSING CHANGE RELATED TO HIDRADINTITIS SUPPURATIVA AN SYSTEMIC INFLAMMATORY DISEASE. THE PATIENT DID NOT WANT HER DRESSING CHANGE DONE TODAY. THE RN COLLABORATED WITH THE PATIENT WHO ALLOWED HALF OF THE WOUND DRESSINGS TO BE CHANGED AND WILL ATTEMPT THE OTHERS AT A LATER TIME. THERE IS NO ACUTE ODOR TODAY. RECOMMENDSATION; CONTINUE CURRENT TREATMENT.
[2021-08-10 15:50] VITALS: BP 112/72
--- NOTE | 2021-08-10 16:30 | NUR ---
PT ORIENTED X 4. PT LETHARGIC AND SLEEPING MOST OF DAY, BUT DID SIT EDGE OF BED FOR ME MIDSHIFT. PT DENIES PAIN. PT REFUSED DRESSING CHANGE THIS SHIFT, PT EDUCATED ON WOUND CARE. PT AGREES TO HAVE DRESSING CHANGE TOMORROW. WILL CONTINUE TO MONITOR.
[2021-08-10 20:29] VITALS: BP 110/69
[2021-08-11] VITALS (7 sets, daily range): BP systolic 100–135; BP diastolic 63–88
--- NOTE | 2021-08-11 04:49 | NUR ---
PROGRESS PT MORE AWAKE AND ALERT THIS SHIFT. SITTING UP ON SIDE OF BED FOR MOST OF THE EVENING. DRESSINGS IN PLACE REFUSED DRESSING CHANGES D/T PAIN. LIQUID HYDROCODONE AND IV MORPHINE GIVEN WITH EFFECT. IV ANTIBIOTICS ADMINISTERED ORDERED. PT HAS POOR INTAKE AND HAS SEAFOOD IN ROOM FROM 24 HRS THAT SHE REFUSES TO THROW AWAY. I STATED TO HER I WAS CONCERNED ABOUT HER GETTING ILL FROM EATING SPOILED FOOD, SHE STATED SHE WILL THROW IT AWAY WHEN SHE GETS HOME TODAY.
[2021-08-11 05:30] LABS: HEMOGLOBIN 6.7 gm/dL (12.0-15.0); WBC 5.3 thou/uL (4.0-11.0)
[2021-08-11 05:31] LABS: MCH 24.1 pg (26.0-34.0); MCHC 32.1 g/dL (28.0-37.0); MCV 75.2 fL (80.0-100.0); RBC 2.79 mil/uL (4.20-5.00); RDW 18.1 % (10.5-14.5)
--- NOTE | 2021-08-11 13:44 | NUR ---
NAVEEN reviewed chart and spoke with nursing and attending physician. Pt remains in Enhanced Isolation due to COVID. Pt is afebrile and on 2L of O2. Pt is on IV abx. Pt had blood transfusion today due to drop in hemoglobin. Discharge home with HH is anticipated over the weekend. [facility] is able to accept pt on service. Final d/c ppwk will need to be faxed to HH when available. NAVEEN placed call to pt's room. No answer. Contact info for HH placed in pt's discharge summary. SW is available to assist as needed with discharge planning. [facility]--
--- NOTE | 2021-08-11 19:39 | NUR ---
RN ASSUMED PT'S CARE AT 0700-1900PM,PT IS A&OX4, PT IS CONTINUING IV ABX, WOUND CARE , TREANT COVID AND PAIN MANAGEMENT, PT IS OFF O2 AND SHE IS ON ROOM AIR TODAY, PT'S VS ARE STABLE AT DAY SHIFT, PT HAS 1UNIT BLOOD TRANSFUSION TODAY FOR HGB 6.7 , PT DOES NOT HAVE BLOOD TRANSFUSION REACTION AT DAY SHIFT, RN HAS REPORTED DR ABOUT PT'S POOR EATING .
--- NOTE | 2021-08-12 03:50 | NUR ---
PT ALERT & ORIENTED X 4. PT HAD MULTIPLE C/O OF PAIN OVERNIGHT. ADMINISTERED PAIN MEDS PRN. PT HAS MULTIPLE WOUNDS AND BILATERAL AXILLARY, GROIN, & GLUTEAL AREA DRESSINGS WERE CHANGED. PREVIOUS DRESSINGS WERE SATURATED WITH SEROSANGUINEOUS FLUID. CURRENTLY ON RA. VSS AFEBRILE. WILL CONTINUE TO MONITOR.
[2021-08-12 03:54] VITALS: BP 103/68
--- NOTE | 2021-08-12 05:18 | NUR ---
PT REFUSING ORAL ABX. STATES THAT THEY UPSET HER STOMACH AND MAKE HER NAUSEATED. NOTIFIED ENGINEERING ADMINISTRATOR.
[2021-08-12 06:17] LABS: HEMATOCRIT 24.2 % (37.0-47.0); HEMOGLOBIN 7.9 gm/dL (12.0-15.0); MCH 24.6 pg (26.0-34.0); MCHC 32.6 g/dL (28.0-37.0); MCV 75.5 fL (80.0-100.0); RBC 3.21 mil/uL (4.20-5.00); RDW 18.3 % (10.5-14.5); WBC 6.1 thou/uL (4.0-11.0)
[2021-08-12 08:20] VITALS: BP 108/68
[2021-08-12] MEDS ORDERED: CLINDAMYCIN HC300 MG PO (10:36)
[2021-08-12 10:47] VITALS: BP 103/67
[2021-08-12 12:05] VITALS: BP 128/80
--- NOTE | 2021-08-12 12:57 | NUR ---
PT DISCHARGING TODAY TO HOME WITH [facility] FAXED DC ORDERS/SUMMARY TO [facility] RECEIVED CONFIRMATION SPOKE WITH [place] IN INTAKE SHE WILL ARRANGE VISITS WITH PT.
--- NOTE | 2021-08-12 14:30 | NUR ---
PATIENT IS DISCHARGED HOME [facility]. PT IS EDUCATED ON DICHARGE AND FOLLOW UP INSTRUCTIONS, PT IS STABLE AND IV IS REMOVED AND TELE MONIOTR IS D/C'D. PTS WOUNDS ARE PICTURED and placed in the chart and rebandaged. PT IS HAS ALL BELONGINGS AT TIME OF DISCHARGE. PT IS ESCORTED OFF OF UNIT VIA W/C ACCOMPANIED BY STAFF.
[2021-08-12 14:35] VITALS: BP 103/67; BP 128/80
== END 2021-08-12 14:44 | disposition home health service (06) | DRG 178 ==
LOC: ER 05:11 → EROBS 08:49 → 3W 08:49
PROVIDERS: Emergency Medicine; ADMIT Hospitalist; ATTEND Hospitalist
PROC: 0X950ZZ Drainage of Left Axilla, Open Approach (ICD-10-PCS; principal; 2021-08-06)
PROC: 0X940ZZ Drainage of Right Axilla, Open Approach (ICD-10-PCS; principal; 2021-08-06)
PROC: 0J9C0ZZ Drainage of Pelvic Region Subcutaneous Tissue and Fascia, Open Approach (ICD-10-PCS; principal; 2021-08-06)
PROC: 0Y900ZZ Drainage of Right Buttock, Open Approach (ICD-10-PCS; principal; 2021-08-06)
PROC: 0Y910ZZ Drainage of Left Buttock, Open Approach (ICD-10-PCS; principal; 2021-08-06)
PROC: 30233N1 Transfusion of Nonautologous Red Blood Cells into Peripheral Vein, Percutaneous Approach (ICD-10-PCS; 2021-08-08)
DX: U07.1 COVID-19 (principal); D62 Acute posthemorrhagic anemia; L02.31 Cutaneous abscess of buttock; L73.2 Hidradenitis suppurativa; E66.9 Obesity, unspecified; E11.65 Type 2 diabetes mellitus with hyperglycemia; Z20.822 Contact with and (suspected) exposure to COVID-19; Z87.891 Personal history of nicotine dependence; Z68.38 Body mass index [BMI] 38.0-38.9, adult
CPT/HCPCS: 10080; 10879; 50101; 50386; 50403; 62110; 62900